=== PATIENT | male | born 1980 | race Caucasian/White ===

== ENCOUNTER 2020-08-21 02:31 | Emergency (ER) | payer BC ==
[~2020-08-21] VITALS: Ht 170.2 cm; Wt 99.8 kg
--- NOTE | 2020-08-21 02:41 | NUR ---
BIBRA C/O ALCOHOL INTOXICATION. PT DENIES SI/HI AT THIS TIME. AAOX3, RESPIRATIONS EVEN AND UNLABORED. NOTED TACHYCARDIA, MD AWARE. NO ACUTE DISTRESS NOTED AT THIS TIME. WILL CONTINUE TO MONITOR.
--- NOTE | 2020-08-21 07:50 | NUR ---
PT ABLE TO AMBULATE WELL WITHOUT ASSISSTANCE. AWARE.
[2020-08-21] MEDS ORDERED: ONDANSETRON HCL/PF - ER 4 MG/2 ML VIAL IM ONE (08:30)
[2020-08-21] MEDS ORDERED: ONDANSETRON HCL/PF 4 MG/2 ML VIAL ONE (08:31)
[2020-08-21] MEDS ORDERED: LORAZEPAM 1 MG TABLET ONE (08:42)
[2020-08-21 08:52] VITALS: BP 124/88
--- NOTE | 2020-08-21 08:52 | NUR ---
IV removed. Catheter intact and site benign. Pressure and 4x4 applied to site. No bleeding noted.Patient discharged to home in stable condition. Written and verbal after care instructions given. Patient verbalizes understanding of instruction.
[2020-08-21] MEDS ORDERED: LORAZEPAM 1 MG TABLET PO ONE (09:00)
== END 2020-08-21 08:52 | disposition home or self-care (01) ==
LOC: ER 02:34
DX: F10.129 Alcohol abuse with intoxication, unspecified (principal); Y90.9 Presence of alcohol in blood, level not specified
CPT/HCPCS: 82962; 96372; 99283; J2405 ×2

== ENCOUNTER 2021-09-04 12:23 | Inpatient (IN) | payer BC ==
[~2021-09-04] VITALS: Ht 177.8 cm; Wt 68.5 kg
[2021-09-04] VITALS (7 sets, daily range): BP systolic 99–119; BP diastolic 59–83
[2021-09-04] MEDS ORDERED: IV PREMIX NS +20MEQ KCL 20 MEQ/L BAG IV ONE (12:27)
--- NOTE | 2021-09-04 12:30 | NUR ---
BIBRA 79 FROM HOME C/O VOMITING STARTED THIS MORNING AND LOW BP 70 SYSTOLIC. PT STATED THAT HE HAS HAD 7 DAYS OF BINGE DRINKING AND HAS BEEN VOMITTING FOR DAYS THIS MORNING IT HAS GOTTEN WORSE AND HE CALLED CONSTRUCTION SALES REPRESENTATIVE HIMSELF. PT IS A&OX4. HAS HISTORY OF PANCREATITIS. BLOOD SUGAR OF 317, MD AWARE. PT ATTCHED TO MONITOR. WARM BLNKAET PROVIDED FOR COMFORT, CHANGED INTO HOSPITAL GOWN. URINAL PROVIDED AT BEDSIDE.
[2021-09-04] MEDS ORDERED: PANTOPRAZOLE 40 MG VIAL ONE (12:52)
[2021-09-04] MEDS ORDERED: ONDANSETRON HCL/PF 4 MG/2 ML VIAL ONE (12:52)
[2021-09-04] MEDS ORDERED: IV NS 0.9% 250 ML IV ONE (12:53)
[2021-09-04] MEDS ORDERED: IOHEXOL-300 100 ML VIAL IV ONE (12:53)
[2021-09-04] MEDS ORDERED: MORPHINE SULFATE INJ 2 MG/ML DISP.SYRIN IV ONE ×2 (13:00→14:00)
[2021-09-04] MEDS ORDERED: IV LR 1000 ML 1,000 ML IV ONE ×2 (13:00→14:30)
[2021-09-04] MEDS ORDERED: ONDANSETRON HCL/PF - ER 4 MG/2 ML VIAL IV ONE (13:00)
[2021-09-04] MEDS ORDERED: PANTOPRAZOLE 80 MG in IV NS 0.9% 500 ML IV ONE (13:00)
[2021-09-04 13:14] LABS: BASOPHILS # (AUTO) 0.1 K/uL (0.0-0.2); BASOPHILS % (AUTO) 0.7 % (0.0-2.0); HEMATOCRIT 47 % (39-51); HEMOGLOBIN 15.2 g/dL (13.5-17.5); LYMPHOCYTES # (AUTO) 2.7 K/uL (0.8-4.8); LYMPHOCYTES % (AUTO) 12.3 % (20.0-44.0); MEAN CORPUSCULAR HGB CONC 32 g/dl (31.0-36.0); MEAN CORPUSCULAR VOLUME 101 fL (80-96); MONOCYTES % (AUTO) 4.6 % (2.0-12.0); NEUTROPHILS # (AUTO) 17.8 K/uL (1.8-8.9); NEUTROPHILS % (AUTO) 82.4 % (43.0-81.0); PLATELET COUNT (AUTO) 301 K/uL (150-450); RED BLOOD CELL COUNT(AUTO) 4.67 MIL/uL (4.5-6.0); WHITE BLOOD COUNT (AUTO) 21.6 K/uL (4.3-11.0)
[2021-09-04] MEDS ORDERED: PANTOPRAZOLE 40 MG VIAL IV ONE (13:30)
[2021-09-04 13:37] LABS: BAND % (MANUAL) 4 % (0.0-5.0); LYMPHOCYTES % (MANUAL) 14 % (16-48); MONOCYTES % (MANUAL) 3 % (0-11.0); NEUTROPHILS % (MANUAL) 79 (42-76)
--- NOTE | 2021-09-04 13:42 | NUR ---
COVID TEST COLLECTD AND SENT
[2021-09-04] MEDS ORDERED: MORPHINE SULFATE INJ 2 MG/ML DISP.SYRIN ONE (13:54)
--- NOTE | 2021-09-04 13:58 | NUR ---
URINE COLLECTED AND SENT
[2021-09-04 14:04] LABS: CALCIUM, SERUM 7.5 mg/dL (8.5-10.1); POTASSIUM 3.3 mmol/L (3.5-5.1)
[2021-09-04 14:09] LABS: ALBUMIN 3.9 g/dL (3.4-5.0); BILIRUBIN,DIRECT 0.2 mg/dL (0.0-0.2); BILIRUBIN,TOTAL 0.4 mg/dL (0.2-1.0)
[2021-09-04 14:24] LABS: ABG BASE EXCESS -29.6 mmol/L; ABG PCO2 9.9 mmHg (35.0-45.0); ABG PO2 135.7 mmHg (75.0-100.0); COHb 0.3 % (0.5-1.5); MetHb 0.5 % (0.0-1.5); O2Hb 97.3 % (94.0-97.0); SITE, ABG Right Radial; VENT MODE, BG room air
[2021-09-04] MEDS ORDERED: CEFTRIAXONE 1 G in IV D5W 50 ML IV ONE (14:30)
[2021-09-04] MEDS ORDERED: SODIUM BICARBONATE 5 MEQ/10 ML DISP.SYRIN IV ONE (14:30)
[2021-09-04] MEDS ORDERED: OXCA150T13 PO (14:34)
[2021-09-04] MEDS ORDERED: ATOR10TA PO (14:34)
[2021-09-04] MEDS ORDERED: EMPA10TA PO (14:34)
[2021-09-04] MEDS ORDERED: METF-881 PO (14:34)
[2021-09-04 14:36] LABS: BILIRUBIN,URINE NEGATIVE (NEGATIVE); COLOR,URINE YELLOW (YELLOW); LEUKOCYTE ESTERASE ,URINE NEGATIVE (NEGATIVE); NITRITE, URINE NEGATIVE (NEGATIVE); PH,URINE 5.5 (5.0-8.0); PROTEIN,URINE 100 mg/dl (NEGATIVE); UGLUCOSE >=1000 mg/dL (NEGATIVE); UROBILINOGEN,URINE 0.2 EU/dL (0.2)
[2021-09-04 14:56] LABS: BACTERIA,URINE 1+ /HPF (None Seen); WBC,URINE 0-2 /HPF (0-3)
[2021-09-04 14:58] LABS: FINE GRANULAR CASTS,URINE Few /LPF (None Seen); MUCUS,URINE Few /LPF (None Seen)
[2021-09-04] MEDS ORDERED: INSULIN REGULAR, HUMAN 100 UNITS in IV NS 0.9% 100 ML IV PRN ×2 (15:00)
[2021-09-04] MEDS ORDERED: IV PREMIX NS +20MEQ KCL 1,000 L IV PRN (15:00)
[2021-09-04] MEDS ORDERED: SODIUM BICARBONATE SYR 50 MEQ/50 ML DISP.SYRIN ONE (15:01)
[2021-09-04] MEDS ORDERED: SODIUM BICARBONATE SYR 100 MEQ in IV D5W 1,000 ML IV ONE (15:30)
[2021-09-04] MEDS ORDERED: IV PREMIX D5 1/2NS + KCL 1,000 ML IV ONE (15:36)
--- NOTE | 2021-09-04 15:46 | NUR ---
NEW IV ESTABLISHED R UPPER ARM 20G
[2021-09-04] MEDS: INSULIN REGULAR, HUMAN 100 UNIT in IV NS 0.9% 99 ML IV PRN ×2 (16:18)
[2021-09-04 16:29] LABS: CALCIUM, SERUM 7.5 mg/dL (8.5-10.1); CREATININE 1.9 mg/dL (0.6-1.3); MAGNESIUM 2.9 mg/dL (1.8-2.4); PHOSPHORUS 7.3 mg/dL (2.5-4.9); POTASSIUM 3.8 mmol/L (3.5-5.1)
[2021-09-04] MEDS ORDERED: ACETAMINOPHEN 325 MG TABLET PO PRN (16:30)
[2021-09-04] MEDS ORDERED: ONDANSETRON HCL/PF 4 MG/2 ML VIAL IVP PRN (16:30)
[2021-09-04] MEDS ORDERED: BISACODYL SUPP (10 MG) 10 MG/SUPP.RECT SUPP.RECT RC ONE (16:30)
--- NOTE | 2021-09-04 16:34 | NUR ---
CO2 IS 2 GLUCOSE 583 IMELDA STRONG NOTIFIED.
--- NOTE | 2021-09-04 16:38 | NUR ---
REPORT GIVEN TO TRACEE FOR MARIELLA
[2021-09-04] MEDS ORDERED: Sodium Bicarbonate 50 MEQ in IV NS 0.9% 1,000 ML IV SCH (17:00)
--- NOTE | 2021-09-04 17:30 | NUR ---
Patient received from ED. Alert and oriented and c/o nausea. Patient is room air with 02 sat of 98%. HOB kept elevated. Admission assessments done by team members. Patient is running insulin drip. Will continue to monitor.
--- NOTE | 2021-09-04 17:32 | NUR ---
PT TRANSPORTED TO ICU IN STABLE CONDITION WITH ACLS PROTOCOLS IN PLACE. PT WAS ABLE TO AMBULATE TO HIS BED DURING TRANSFER WITH ASSISTANCE.
[2021-09-04] MEDS: BLOOD SUGAR DIAGNOSTIC 1 EACH STRIP IN SCH ×7 (17:41→23:06)
[2021-09-04] MEDS: Potassium Chloride 40 MEQ in IV NS 0.9% 1,000 ML IV SCH (17:46)
[2021-09-04] MEDS ORDERED: VANCOMYCIN HCL 0.75 GM in IV D5W 250 ML IV SCH (18:00)
[2021-09-04] MEDS: ATORVASTATIN 10 MG TABLET PO SCH (18:00)
[2021-09-04] MEDS: PIPERACILLIN /TAZOBACTAM 3.375 G in IV D5W 50 ML IV SCH (18:47)
--- NOTE | 2021-09-04 19:15 | NUR ---
EDITOR PRODUCER CLOSING NOTES Patient is alert and oriented. Breathing even and unlabored on room air. On insulin drip running at 12 units/hr. K+ DRIP, NA BICARB drip running well. Patient given dulcolax suppository per md orders. HOB kept elevated. C/o nausea but no vomiting and given Zofran iv push with good effect. 1900 accucheck done and noted with BS of HIGH. Insulin kept at 12 units/hour. Endorsed to next shift.
--- NOTE | 2021-09-04 19:45 | NUR ---
RN NOTE RECEIVED PT SITTING IN BED. AOX4. NO DISTRESS NOTED. DENIES PAIN AT THIS TIME. PT ON INSULIN DRIP AT 12U/HR. WILL DO FSBS Q1H. PT ALSO ON NA BICARB AND KCL RUNNING, ALL INFUSING WELL. NO SIGNS OF INFILTRATION NOTED. WILL CONTINUE TO MONITOR. CALL LIGHT WITHIN REACH.
[2021-09-04] MEDS: Folic acid 1 MG in IV D5W 50 ML IV SCH (20:14)
[2021-09-04 20:17] LABS: CALCIUM, SERUM 7.2 mg/dL (8.5-10.1); CREATININE 1.5 mg/dL (0.6-1.3); MAGNESIUM 2.4 mg/dL (1.8-2.4); PHOSPHORUS 1.5 mg/dL (2.5-4.9); POTASSIUM 3.7 mmol/L (3.5-5.1)
[2021-09-04] MEDS: LORAZEPAM INJ 2 MG/ML VIAL IV PRN (20:31)
[2021-09-04] MEDS: Thiamine 100 MG in IV D5W 50 ML IV SCH (20:54)
[2021-09-05] VITALS (25 sets, daily range): BP systolic 86–134; BP diastolic 54–93
[2021-09-05 00:55] LABS: CALCIUM, SERUM 7.6 mg/dL (8.5-10.1); CREATININE 1.3 mg/dL (0.6-1.3); MAGNESIUM 2.1 mg/dL (1.8-2.4); POTASSIUM 4.1 mmol/L (3.5-5.1)
[2021-09-05] MEDS: BLOOD SUGAR DIAGNOSTIC 1 EACH STRIP IN SCH ×24 (01:03→23:01)
[2021-09-05 01:06] LABS: PHOSPHORUS 0.5 mg/dL (2.5-4.9)
[2021-09-05] MEDS: Potassium Chloride 40 MEQ in IV NS 0.9% 1,000 ML IV SCH (01:42)
[2021-09-05] MEDS: INSULIN REGULAR, HUMAN 100 UNIT in IV NS 0.9% 99 ML IV PRN ×4 (01:44→09:52)
--- NOTE | 2021-09-05 02:13 | NUR ---
RN NOTE NOTIFIED DR MALDONADO REGARDING PHOSPHORUS 0.5. AND FSBS 163 MD ORDERED TO START D5 1/2 NS AT 125ML/HR. STOP BICARB AND CONTINUE WITH ACCUCHECK Q1H AND INSULIN DRIP.
[2021-09-05] MEDS ORDERED: IV D5/0.45 NACL 1,000 ML IV PRN (02:30)
[2021-09-05] MEDS: LORAZEPAM INJ 2 MG/ML VIAL IV PRN (03:51)
--- NOTE | 2021-09-05 04:00 | NUR ---
RN NOTE PT VERBALIZES ANXIOUSNESS, REQUESTED FOR ATIVAN, GIVEN ORDERED. WILL CONTINUE TO MONITOR.
[2021-09-05 04:50] LABS: BASOPHILS % (AUTO) 0.3 % (0.0-2.0); HEMATOCRIT 39 % (39-51); HEMOGLOBIN 13.6 g/dL (13.5-17.5); LYMPHOCYTES # (AUTO) 0.6 K/uL (0.8-4.8); LYMPHOCYTES % (AUTO) 7.3 % (20.0-44.0); MEAN CORPUSCULAR HGB CONC 35 g/dl (31.0-36.0); MEAN CORPUSCULAR VOLUME 95 fL (80-96); MONOCYTES # (AUTO) 0.5 K/uL (0.1-1.30); MONOCYTES % (AUTO) 6.1 % (2.0-12.0); NEUTROPHILS # (AUTO) 6.5 K/uL (1.8-8.9); NEUTROPHILS % (AUTO) 86.3 % (43.0-81.0); PLATELET COUNT (AUTO) 130 K/uL (150-450); RED BLOOD CELL COUNT(AUTO) 4.12 MIL/uL (4.5-6.0); WHITE BLOOD COUNT (AUTO) 7.6 K/uL (4.3-11.0)
[2021-09-05 05:16] LABS: CALCIUM, SERUM 7.5 mg/dL (8.5-10.1); CREATININE 1.2 mg/dL (0.6-1.3); MAGNESIUM 2.2 mg/dL (1.8-2.4); POTASSIUM 3.7 mmol/L (3.5-5.1)
[2021-09-05 05:21] LABS: ALBUMIN 3.3 g/dL (3.4-5.0); BILIRUBIN,TOTAL 0.7 mg/dL (0.2-1.0); CALCIUM, SERUM 7.6 mg/dL (8.5-10.1); CREATININE 1.1 mg/dL (0.6-1.3); MAGNESIUM 2.3 mg/dL (1.8-2.4); POTASSIUM 3.7 mmol/L (3.5-5.1); TOTAL PROTEIN, SERUM 6.1 g/dL (6.4-8.2)
[2021-09-05 05:25] LABS: THYROID STIMULATING HORMONE 1.93 uIU/mL (0.358-3.74)
[2021-09-05 05:44] LABS: PHOSPHORUS 0.5 mg/dL (2.5-4.9); PHOSPHORUS 0.6 mg/dL (2.5-4.9)
[2021-09-05] MEDS: PIPERACILLIN /TAZOBACTAM 3.375 G in IV D5W 50 ML IV SCH ×6 (05:55→23:55)
--- NOTE | 2021-09-05 07:15 | NUR ---
RN NOTE PT SLEEPING, AROUSES EASILY. NOT IN ANY DISTRESS. CONTINUE ON INSULIN DRIP AT 3.1U/HR. LATEST FSBS 155. REMAIN NPO. CONTINUES ON FLUIDS OF KCL 40MEQ AT 125ML/HR AND D51/2 NS AT 12ML/HR. ALL INFUSING WELL. NO S/SX OF INFILTRATION NOTED. PT HAD 1 LARGE BM. ABLE TO MAKE NEEDS KNOWN. ENDORSED TO NEXT SHIFT NURSE FOR MARIELLA.
--- NOTE | 2021-09-05 07:39 | NUR ---
RN NOTE PHOSPHORUS 0.5, RECEIVED AN ORDER FROM DR MALDONADO TO GIVE KPHOS 15MMOL. CHARGE NURSE MADE AWARE.
--- NOTE | 2021-09-05 08:00 | NUR ---
RN NOTES RECEIVED PATIENT IN THE BED RESTING. ROOM AIR, NO ACUTRE RESPIRATORY DISTRESS, VSS, PATIENT ON INSULIN DRIP, BS-126MG/DL. FOLLOWING ON INSULIN FORMULA, AND PROTOCOL. PATIENT USING URINAL. IV ACCESS ON JIGNESH, RW, LW, AND LAC. CALL LIGHT WITHIN TO REACH. WILL FOLLOW UP.
[2021-09-05] MEDS: POTASSIUM PHOSPHATE MM 7.5 MMOL in IV NS 0.9% 100 ML IV SCH ×2 (08:22→11:24)
[2021-09-05] MEDS ORDERED: Sodium Phosphate 30 MMOL in IV NS 0.9% 250 ML IV SCH (09:00)
[2021-09-05] MEDS ORDERED: PANTOPRAZOLE 40 MG VIAL IV SCH (09:00)
[2021-09-05] MEDS: SUCRALFATE 1 G TABLET PO SCH (09:01)
[2021-09-05] MEDS: MULTIPLE VIT (LYCOPENE/FA/MV,CA,IRON,MIN/LUT)1 TAB PO SCH (09:05)
[2021-09-05 09:37] LABS: CALCIUM, SERUM 7.8 mg/dL (8.5-10.1); CREATININE 1.1 mg/dL (0.6-1.3); MAGNESIUM 2.1 mg/dL (1.8-2.4); POTASSIUM 3.6 mmol/L (3.5-5.1)
[2021-09-05 10:16] LABS: PHOSPHORUS 0.6 mg/dL (2.5-4.9)
[2021-09-05] MEDS: Potassium Chloride 40 MEQ in IV D5/0.45 NACL 1,000 ML IV SCH ×2 (10:39→18:18)
[2021-09-05] MEDS ORDERED: DEXTROSE 50%-WATER 50 ML DISP.SYRIN IVP ONE (11:00)
--- NOTE | 2021-09-05 11:00 | NUR ---
RN NOTES PATIENT GET INSERTED MIDLINE ON KRISTIAN.
[2021-09-05 12:33] LABS: CALCIUM, SERUM 7.5 mg/dL (8.5-10.1); MAGNESIUM 2.3 mg/dL (1.8-2.4); PHOSPHORUS 1.6 mg/dL (2.5-4.9); POTASSIUM 3.6 mmol/L (3.5-5.1)
--- NOTE | 2021-09-05 15:20 | NUR ---
rn notes UA specimen collected clean catch, called lab to pick pack worker. patient awake, refused pain, no acute respiratory distress, vss. patient npo. call light within to reach. will follow up.
[2021-09-05 16:50] LABS: CALCIUM, SERUM 7.9 mg/dL (8.5-10.1); CREATININE 1.1 mg/dL (0.6-1.3); MAGNESIUM 2.4 mg/dL (1.8-2.4); PHOSPHORUS 1.9 mg/dL (2.5-4.9); POTASSIUM 3.5 mmol/L (3.5-5.1)
[2021-09-05] MEDS: Folic acid 1 MG in IV D5W 50 ML IV SCH (17:24)
[2021-09-05] MEDS: Thiamine 100 MG in IV D5W 50 ML IV SCH (17:24)
[2021-09-05] MEDS: ATORVASTATIN 10 MG TABLET PO SCH (18:18)
--- NOTE | 2021-09-05 18:30 | NUR ---
rn notes pm care done, due medication administered, patient using urinal. continued insulin drip 2.1u, and d51/2 ns with kcl @40meq @125ml/hr. patient npo except Meds, and ice chips, patient able to self care. endorsed oncoming nurse follow juliane.
--- NOTE | 2021-09-05 20:00 | NUR ---
ICU NOTES Received patient A/OX3.VSS.SR normotensive on Insulin gtt infusing at 2.04 units/hr via KRISTIAN ML and IVF.On RA saturation 100%.Denies pain or any discomfort.NPO except meds and ice chips. Independent voiding per urinal.Will monitor blood sugar Q 1hr till further orders.Safety measures implemented .Call light at bedside.
[2021-09-05 23:35] LABS: CALCIUM, SERUM 7.8 mg/dL (8.5-10.1); MAGNESIUM 2.1 mg/dL (1.8-2.4); PHOSPHORUS 1.3 mg/dL (2.5-4.9); POTASSIUM 3.3 mmol/L (3.5-5.1)
[2021-09-06] VITALS (14 sets, daily range): BP systolic 92–138; BP diastolic 56–87
--- NOTE | 2021-09-06 | NUR ---
ICU NOTES Patient FSBS 131. and ANION GAP 20 Called to with orders received. If BS <150-200 increased IVF 2 ml/hr to maintain BS 150-200. If BS 150-200 keep IVF as it is.Do not adjust Insulin gtt., If BS >250 adjust rate of insulin gtt using the Formula BS x2 divided by 100.
[2021-09-06] MEDS: BLOOD SUGAR DIAGNOSTIC 1 EACH STRIP IN SCH ×4 (00:23→03:25)
[2021-09-06] MEDS ORDERED: INSULIN REGULAR, HUMAN 100 UNIT in IV NS 0.9% 99 ML IV PRN ×2 (00:30)
[2021-09-06 00:40] LABS: CALCIUM, SERUM 7.6 mg/dL (8.5-10.1); CREATININE 0.9 mg/dL (0.6-1.3); POTASSIUM 3.2 mmol/L (3.5-5.1)
[2021-09-06] MEDS ORDERED: IV NS 0.9% 250 ML IV PRN (01:00)
--- NOTE | 2021-09-06 01:45 | NUR ---
ICU NOTES 013 Patient BS 94 IVF increased to 129 ml/hr. notified of Anion Gap 11.Read back telephone orders received and carried out.Adjust Insulin gtt to 1.88ml/hr per protocol. Let the patient [facility] diet and recheck BS IN 15-30 min after patient eats and cover with Regular Insulin Aggressive sliding scale together with Insulin gtt.Do another BMP at 0300.AT 0145 Diet served ate with good appetite. Addendum: 09/06/21 at 0500 by ALFONZO NGUYEN RN Correction: Regular Insulin moderate sliding scale given instead of Aggressive SS.
[2021-09-06] MEDS: Potassium Chloride 40 MEQ in IV D5/0.45 NACL 1,000 ML IV SCH (01:52)
[2021-09-06] MEDS ORDERED: BLOOD SUGAR DIAGNOSTIC 1 EACH STRIP IN SCH ×2 (02:00→03:00)
[2021-09-06] MEDS ORDERED: DEXTROSE 50%-WATER 50 ML DISP.SYRIN IV PRN ×2 (02:30→07:30)
[2021-09-06] MEDS: INSULIN REGULAR, HUMAN 100 UNIT/ML 3 ML VIAL SQ PRN ×3 (02:51→07:39)
[2021-09-06 03:40] LABS: ALBUMIN 2.9 g/dL (3.4-5.0); BILIRUBIN,DIRECT 0.3 mg/dL (0.0-0.2); CALCIUM, SERUM 7.3 mg/dL (8.5-10.1); MAGNESIUM 1.9 mg/dL (1.8-2.4); PHOSPHORUS 1.5 mg/dL (2.5-4.9); POTASSIUM 3.1 mmol/L (3.5-5.1); TOTAL PROTEIN, SERUM 5.5 g/dL (6.4-8.2)
--- NOTE | 2021-09-06 03:53 | NUR ---
ICU NOTES called and inquire about patient status and latest ANION GAP for 0300 which is 11.Orders received and carried out.Insulin gtt and IVF dc'd.BS 232 covered with 6 units Regular insulin moderated SS.Changed Accu check to AC and HS with moderate SS.
[2021-09-06 04:01] LABS: BASOPHILS % (AUTO) 0.6 % (0.0-2.0); EOSINOPHILS % (AUTO) 0.9 % (0.0-6.0); HEMATOCRIT 38 % (39-51); HEMOGLOBIN 12.9 g/dL (13.5-17.5); LYMPHOCYTES # (AUTO) 1.2 K/uL (0.8-4.8); LYMPHOCYTES % (AUTO) 21.2 % (20.0-44.0); MEAN CORPUSCULAR HGB CONC 34 g/dl (31.0-36.0); MEAN CORPUSCULAR VOLUME 95 fL (80-96); MONOCYTES # (AUTO) 0.2 K/uL (0.1-1.30); MONOCYTES % (AUTO) 3.5 % (2.0-12.0); NEUTROPHILS # (AUTO) 4.3 K/uL (1.8-8.9); NEUTROPHILS % (AUTO) 73.8 % (43.0-81.0); RED BLOOD CELL COUNT(AUTO) 3.96 MIL/uL (4.5-6.0); WHITE BLOOD COUNT (AUTO) 5.9 K/uL (4.3-11.0)
[2021-09-06] MEDS: PIPERACILLIN /TAZOBACTAM 3.375 G in IV D5W 50 ML IV SCH ×2 (05:40→11:05)
--- NOTE | 2021-09-06 06:54 | NUR ---
ICU NOTES Patient awake and oriented x4.NO acute distress noted.Vital signs remains stable.SR No signs of hypo/hyperglycemia noted.IV NS at TKO infusing to KRISTIAN ML.Patient refused AM care refused he said he will do it later.Endorsed to Day shift for continuity of care..
[2021-09-06] MEDS: BLOOD SUGAR DIAGNOSTIC 1 EACH STRIP VI SCH ×4 (07:25→21:24)
[2021-09-06] MEDS: PANTOPRAZOLE 40 MG TABLET.DR PO SCH (07:27)
--- NOTE | 2021-09-06 07:30 | NUR ---
RN OPENING NOTE PT OBSERVED IN BED WITH HOB HIGH FOWLERS. PT IS ON RA TOLERATING WELL WITH NO SIGNS OF LABORED BREATHING OR DISTRESS SAT 98%. PT IS A/OX4 AND SR; USING URINAL; SKIN IS INTACT. PT IS ON CCHO DIET. IV ACCESS R FA 20G; RW 20G; LW 20G; L AC 20G; L UA MIDLINE. BED IS LOCKED IN LOWEST POSITION X2 BED RAILS UP AND ALL HOSPITAL SAFETY PROTOCOLS ARE IN PLACE. WILL CONTINUE TO MONITOR THIS SHIFT.
--- NOTE | 2021-09-06 07:40 | NUR ---
RN NOTE PT BS 63. PER SLIDING SCALE, NO COVERAGE NEEDED AT THIS TIME.
[2021-09-06] MEDS: MULTIPLE VIT (LYCOPENE/FA/MV,CA,IRON,MIN/LUT)1 TAB PO SCH (08:36)
[2021-09-06] MEDS: SUCRALFATE 1 G TABLET PO SCH (08:36)
[2021-09-06] MEDS: THIAMINE HCL 100 MG TABLET PO SCH (08:37)
[2021-09-06] MEDS: FOLIC ACID 1 MG TABLET PO SCH (08:37)
[2021-09-06] MEDS ORDERED: K PHOS NEUTRAL 250 MG TABLET PO ONE (10:00)
[2021-09-06] MEDS ORDERED: POTASSIUM CHLORIDE 20 MEQ TAB.PRT.SR PO SCH (10:00)
[2021-09-06] MEDS: *INSULIN REGULAR(HUMULIN R)HUM 100 UNIT/ML VIAL SQ PRN ×3 (11:26→21:24)
--- NOTE | 2021-09-06 12:04 | NUR ---
RN NOTE: TRANSFER TO CALLED AND GAVE REPORT TO IMELDA GORE. WILL BE TRANSFERRING PT TO #[id number]. PT STABLE AT THIS TIME.
--- NOTE | 2021-09-06 12:25 | NUR ---
RN NOTE: TRANSFERRED PT STABLE AT THIS TIME AND TRANSFERRED TO #[id number] VIA WHEELCHAIR WITH ALL BELONGINGS AND MEDICATIONS. PT RECEIVED BY IMELDA GORE.
--- NOTE | 2021-09-06 12:50 | NUR ---
RN NOTE PATIENT WAS TRANSFERRED TO UNIT VIA WHEELCHAIR, NO DISTRESS. A/O X4. NO S/S OF PAIN NOTED AT THIS TIME. ON ROOM AIR, NO DISTRESS OR SHORTNESS OF BREATH NOTED. IV ACCESS RFA #20G, R WRIST #20G, L WRIST #18G AND LAC #20G, INTACT, PATENT AND FLUSHING WELL. PATIENT WITH EXTERNAL HOPS FARMWORKER WITH CURRENT READING OF S.R., NO CARDIAC DISTRESS NOTED. FALL AND SAFETY MEASURES IN PLACE, BED IN LOW LOCK POSITION, CALL LIGHT AND TABLE WITHIN EASY REACH, SIDE RAILS UP X2. PATIENT ORIENTED TO ROOM SET UP AND SHOWED PATIENT HOW TO USE CALL LIGHT. WILL CONTINUE TO MONITOR.
[2021-09-06 16:05] LABS: PLATELET COUNT (AUTO) 94 K/uL (150-450)
[2021-09-06] MEDS: ATORVASTATIN 10 MG TABLET PO SCH (17:54)
--- NOTE | 2021-09-06 18:43 | NUR ---
RN CLOSING NOTE PATIENT AWAKE IN BED RESTING, A/O X4. NO S/S OF PAIN NOTED AT THIS TIME. ON ROOM AIR, NO DISTRESS OR SHORTNESS OF BREATH NOTED. IV ACCESS RFA #20G, R WRIST #20G, L WRIST #18G AND LAC #20G, INTACT, PATENT AND FLUSHING WELL. PATIENT WITH EXTERNAL WATER/WASTEWATER PROJECT MANAGER WITH CURRENT READING OF S.R. AND HR OF 87, NO CARDIAC DISTRESS NOTED. FALL AND SAFETY MEASURES IN PLACE, BED IN LOW LOCK POSITION, CALL LIGHT AND TABLE WITHIN EASY REACH, SIDE RAILS UP X2. WILL ENDORSE TO ROLLER SKATER NURSE.
--- NOTE | 2021-09-06 19:10 | NUR ---
COLLECTION SUPPORT SPECIALIST OPENING NOTES: RECEIVED PATIENT IN BED, AWAKE, A/O X4. NO S/S OF DISTRESS NOTED. NO COMPLAIN OF PAIN. CALL LIGHT WITHIN REACH. BED IN LOWEST AND LOCKED POSITION. ON TELE MONITOR WITH SINUS 87.
[2021-09-07] VITALS: BP 106/74
[2021-09-07 04:00] VITALS: BP 112/73
[2021-09-07 06:41] LABS: BASOPHILS % (AUTO) 0.9 % (0.0-2.0); EOSINOPHILS % (AUTO) 1.7 % (0.0-6.0); HEMATOCRIT 40 % (39-51); HEMOGLOBIN 13.3 g/dL (13.5-17.5); LYMPHOCYTES # (AUTO) 1.3 K/uL (0.8-4.8); MEAN CORPUSCULAR HGB CONC 34 g/dl (31.0-36.0); MEAN CORPUSCULAR VOLUME 97 fL (80-96); MONOCYTES # (AUTO) 0.2 K/uL (0.1-1.30); MONOCYTES % (AUTO) 4.5 % (2.0-12.0); NEUTROPHILS # (AUTO) 2.4 K/uL (1.8-8.9); NEUTROPHILS % (AUTO) 60.9 % (43.0-81.0); PLATELET COUNT (AUTO) 81 K/uL (150-450); RED BLOOD CELL COUNT(AUTO) 4.06 MIL/uL (4.5-6.0); WHITE BLOOD COUNT (AUTO) 3.9 K/uL (4.3-11.0)
[2021-09-07] MEDS: INSULIN REGULAR, HUMAN 100 UNIT/ML 3 ML VIAL SQ PRN ×2 (06:44→11:45)
[2021-09-07] MEDS: BLOOD SUGAR DIAGNOSTIC 1 EACH STRIP VI SCH ×2 (06:46→11:46)
--- NOTE | 2021-09-07 07:35 | NUR ---
BIOMEDICAL EQUIPMENT TECH OPENING NOTES RECEIVED PATIENT IN BED, AWAKE. A/O X4. NO COMPLAINT OF PAIN AT THIS TIME. ON RA, NO ACUTE DISTRESS, UNLABORED BREATHING. TELE MONITOR SHOWS SR 82 BPM AT THIS TIME. SAFETY PRECAUTIONS IN PLACE: CALL LIGHT WITHIN REACH, BED IN LOWEST AND LOCKED POSITION, SIDE RAILS UP X2. WILL CONTINUE PLAN OF CARE
[2021-09-07 08:00] VITALS: BP 125/75
[2021-09-07] MEDS: SUCRALFATE 1 G TABLET PO SCH (08:24)
[2021-09-07] MEDS: MULTIPLE VIT (LYCOPENE/FA/MV,CA,IRON,MIN/LUT)1 TAB PO SCH (08:24)
[2021-09-07] MEDS: THIAMINE HCL 100 MG TABLET PO SCH (08:24)
[2021-09-07] MEDS: PANTOPRAZOLE 40 MG TABLET.DR PO SCH (08:24)
[2021-09-07] MEDS: FOLIC ACID 1 MG TABLET PO SCH (08:24)
[2021-09-07 08:30] LABS: CALCIUM, SERUM 8.6 mg/dL (8.5-10.1); CREATININE 0.6 mg/dL (0.6-1.3); MAGNESIUM 2.2 mg/dL (1.8-2.4); PHOSPHORUS 2.1 mg/dL (2.5-4.9); POTASSIUM 3.9 mmol/L (3.5-5.1)
[2021-09-07 12:53] LABS: ALBUMIN 3.2 g/dL (3.4-5.0); BILIRUBIN,DIRECT 0.3 mg/dL (0.0-0.2); BILIRUBIN,TOTAL 1.3 mg/dL (0.2-1.0)
[2021-09-07] MEDS ORDERED: K PHOS NEUTRAL 250 MG TABLET PO ONE (15:30)
--- NOTE | 2021-09-07 16:55 | NUR ---
DATA INPUT CLERK NOTES PATIENT MEDICALLY STABLE FOR DISCHARGE. DISCHARGE INSTRUCTIONS AND EXIT CARE PACKET PROVIDED. PATIENT VERBALIZED UNDERSTANDING OF TEACHING. ALL BELONGINGS ACCOUNTED FOR AND DOCUMENTS SIGNED. ALL LINES REMOVED AND ID BAND REMOVED. PATIENT LEFT IN PRIVATE CARE ACCOMPANIED BY FRIEND.
== END 2021-09-07 16:50 | disposition home or self-care (01) | DRG 871 ==
LOC: ER 12:26 → ICU 16:00 → TELE 09-06 12:47
PROVIDERS: ADMIT Registered Nurse; ATTEND Nurse Practitioner Family
PROC: 05H633Z Insertion of Infusion Device into Left Subclavian Vein, Percutaneous Approach (ICD-10-PCS; principal; 2021-09-05)
PROC: B547ZZA Ultrasonography of Left Subclavian Vein, Guidance (ICD-10-PCS; 2021-09-05)
DX: A41.9 Sepsis, unspecified organism (principal); E11.10 Type 2 diabetes mellitus with ketoacidosis without coma; R65.21 Severe sepsis with septic shock; N17.0 Acute kidney failure with tubular necrosis; K86.1 Other chronic pancreatitis; N39.0 Urinary tract infection, site not specified; E44.1 Mild protein-calorie malnutrition; E83.39 Other disorders of phosphorus metabolism; E88.09 Other disorders of plasma-protein metabolism, not elsewhere classified; K59.00 Constipation, unspecified; Z79.84 Long term (current) use of oral hypoglycemic drugs; K20.90 Esophagitis, unspecified without bleeding; K76.0 Fatty (change of) liver, not elsewhere classified; Z68.21 Body mass index [BMI] 21.0-21.9, adult; Z20.822 Contact with and (suspected) exposure to COVID-19; F10.129 Alcohol abuse with intoxication, unspecified; Y90.5 Blood alcohol level of 100-119 mg/100 ml
CPT/HCPCS: 36415; 36600; 71045-TC; 80048-TC; 80053-TC; 80076-TC; 80202-TC; 81001; 82962-TC; 83605-TC; 83690-TC; 83735-TC; 84100-TC; 84443-TC; 84484-TC; 85025-TC; 86850-TC; 87040-TC; 87081-TC; 87086-TC; A9563; C9113; C9803; G0378; G0480; J0696; J1815; J2060; J2270; J2405; J2543; J3370; J3411; J3480; J3490; J7030; J7050; J7060; J7070; J7120; Q9967

== ENCOUNTER 2022-06-28 07:30 | Emergency (ER) | payer BC ==
[~2022-06-28] VITALS: Ht 177.8 cm; Wt 68.0 kg
[~2022-06-28 07:30] MED LIST: ATOR10TA PO; EMPA10TA PO; METF-881 PO; OXCA150T13 PO
--- NOTE | 2022-06-28 07:49 | NUR ---
RECEived pt 41 yrs male came by pramidrajinder from home c/o epegastric pain hx ETOH
--- NOTE | 2022-06-28 08:00 | NUR ---
SEEN BY DR. GAITAN
[2022-06-28 08:01] LABS: BASOPHILS % (AUTO) 0.4 % (0.0-2.0); EOSINOPHILS % (AUTO) 0.5 % (0.0-6.0); HEMATOCRIT 46 % (39-51); HEMOGLOBIN 15.4 g/dL (13.5-17.5); LYMPHOCYTES # (AUTO) 1.6 K/uL (0.8-4.8); LYMPHOCYTES % (AUTO) 23.9 % (20.0-44.0); MEAN CORPUSCULAR HGB CONC 33 g/dl (31.0-36.0); MEAN CORPUSCULAR VOLUME 87 fL (80-96); MONOCYTES # (AUTO) 0.2 K/uL (0.1-1.30); MONOCYTES % (AUTO) 3.3 % (2.0-12.0); NEUTROPHILS # (AUTO) 4.9 K/uL (1.8-8.9); NEUTROPHILS % (AUTO) 71.9 % (43.0-81.0); PLATELET COUNT (AUTO) 75 K/uL (150-450); RED BLOOD CELL COUNT(AUTO) 5.31 MIL/uL (4.5-6.0); WHITE BLOOD COUNT (AUTO) 6.8 K/uL (4.3-11.0)
--- NOTE | 2022-06-28 08:05 | NUR ---
INSERTED ANGO CATHETER G 20 ON RT FOR ARM PATENT WILL
--- NOTE | 2022-06-28 08:10 | NUR ---
BLOOD DROW AND SENT TO LAB
[2022-06-28] MEDS ORDERED: MAG HYDROX/AL HYDROX/SIMETH 30 ML UDC ONE (08:11)
[2022-06-28] MEDS ORDERED: ONDANSETRON HCL/PF 4 MG/2 ML VIAL ONE (08:11)
[2022-06-28] MEDS ORDERED: LIDOCAINE VISCOUS 2% UD 15 ML UDC ONE (08:12)
[2022-06-28] MEDS ORDERED: FAMOTIDINE/PF INJ 20 MG/2 ML VIAL IV ONE ×2 (08:12→08:30)
[2022-06-28 08:13] LABS: BILIRUBIN,DIRECT 0.4 mg/dL (0.0-0.2); BILIRUBIN,TOTAL 1.2 mg/dL (0.2-1.0); CALCIUM, SERUM 8.7 mg/dL (8.5-10.1); CREATININE 0.9 mg/dL (0.6-1.3); POTASSIUM 3.5 mmol/L (3.5-5.1); TOTAL PROTEIN, SERUM 7.4 g/dL (6.4-8.2)
[2022-06-28] MEDS ORDERED: LORAZEPAM INJ 2 MG/ML VIAL IV ONE (08:30)
[2022-06-28] MEDS ORDERED: MAG HYDROX/AL HYDROX/SIMETH 30 ML UDC PO ONE (08:30)
[2022-06-28] MEDS ORDERED: IV NS 0.9% 1,000 ML BAG IV ONE (08:30)
[2022-06-28] MEDS ORDERED: LIDOCAINE VISCOUS 2% UD 15 ML UDC MM ONE (08:30)
[2022-06-28] MEDS ORDERED: ONDANSETRON HCL/PF 4 MG/2 ML VIAL IVP ONE (08:30)
[2022-06-28] MEDS ORDERED: LORAZEPAM INJ 2 MG/ML VIAL ONE (08:32)
[2022-06-28] MEDS ORDERED: ONDA4TAB5 PO (08:52)
[2022-06-28] MEDS ORDERED: FAMO-131 PO (08:52)
--- NOTE | 2022-06-28 09:02 | NUR ---
UA SENT SENT TO LAB
--- NOTE | 2022-06-28 09:30 | NUR ---
PT felling improving and responded to tx
[2022-06-28] MEDS ORDERED: CHLO25CA22 PO (09:31)
--- NOTE | 2022-06-28 09:55 | NUR ---
IV removed. Catheter intact and site benign. Pressure and 4x4 applied to site. No bleeding noted.
--- NOTE | 2022-06-28 09:56 | NUR ---
Patient discharged to home in stable condition. Written and verbal after care instructions given. Patient verbalizes understanding of instruction.
[2022-06-28 09:58] VITALS: BP 114/73
[2022-06-29 03:18] LABS: BASOPHILS % (MANUAL) 0 % (0.0-2.0); EOSINOPHILS % (MANUAL) 0 % (0-4); LYMPHOCYTES % (MANUAL) 24 % (16-48); MONOCYTES % (MANUAL) 3 % (0-11.0); NEUTROPHILS % (MANUAL) 73 (42-76)
== END 2022-06-28 10:30 | disposition home or self-care (01) ==
LOC: ER 08:11
DX: K29.20 Alcoholic gastritis without bleeding (principal); F10.239 Alcohol dependence with withdrawal, unspecified; F10.229 Alcohol dependence with intoxication, unspecified; R10.13 Epigastric pain; K70.9 Alcoholic liver disease, unspecified; E78.5 Hyperlipidemia, unspecified; E11.9 Type 2 diabetes mellitus without complications; Z79.899 Other long term (current) drug therapy; Y90.6 Blood alcohol level of 120-199 mg/100 ml
CPT/HCPCS: 99285; 96374; 96361; 96375; 76705; 85025; 80048; 83690; 80076; 85007; 36415; 80320; J2060; J3490; J2405; J7030; G0480

== ENCOUNTER 2022-10-25 13:10 | Inpatient (IN) | payer BC ==
[~2022-10-25] VITALS: Ht 167.6 cm; Wt 75.7 kg
[~2022-10-25 13:10] MED LIST changes: +CHLO25CA22 PO; +FAMO-131 PO; +ONDA4TAB5 PO
[2022-10-25] MEDS ORDERED: ETOMIDATE 2 MG/ML VIAL IV ONE ×2 (13:12→13:30)
[2022-10-25] MEDS ORDERED: SUCCINYLCHOLINE CHLORIDE 20 MG/ML VIAL IV ONE ×2 (13:12→13:30)
--- NOTE | 2022-10-25 13:12 | NUR ---
IV ESTABLISHED L AC 20G. LABS DRAWN AND SENT.
[2022-10-25] MEDS ORDERED: INSU300I SQ (13:28)
[2022-10-25] MEDS ORDERED: PROPOFOL 100 ML ONE ×2 (13:28→16:27)
[2022-10-25] MEDS ORDERED: INSU100V SQ (13:28)
[2022-10-25] MEDS ORDERED: IV NS 0.9% 1,000 ML BAG IV ONE ×2 (13:30→15:00)
[2022-10-25] MEDS ORDERED: PROPOFOL 100 ML IV PRN ×2 (13:30→16:00)
--- NOTE | 2022-10-25 13:46 | NUR ---
PT ARRIVED ALTERED AND UNRESPONSIVE CONVULSIONS NOTED. O2SAT 86 PLACED ON NRB AT 15L. FURTHER EVALUATION PROVED THAT PT COULD NOT PROTECT HIS OWN AIRWAY, SO MD MADE DECISION TO INTUBATE. 20 OF ETOMIDATE AND 100 OF SUCCUNYLCHOLINE WAS DRAWN UP. PT WAS THEN PLACED ON BAG MASK VENT AT 15L. ONCE ALL INSTRUMENTS RT AND RN'S WERE PRESENT PTS VITALS WERE HR 101, RR21, O2SAT 87 W/ NRB 79/49. AT 1316 20MG OF ETOMIDATE WAS PUSHED AND FLUSHED, THEN 1317 100MG OF SUCC WAS PUSHED AND FLUSHED. PT WAS THEN INTUBATED WITHOUT COMPLICATIONS 24@THE LIP AND O2 SAT WAS MAINTAINED. PT WAS THEN CONNECTED TO THE VENTILATOR AC 201GQR3, 500 Tv, RR14, PEEP 5. POST VITALS HR 106, RR18, 100% O2SAT, BP 99/78. FRIED CATHETER WAS INSERTED AND URINE SAMPLE WAS COLLECTED DARK STRAW COLORED URINE NG TUBE WAS PLACE 2 RN AUSCULTATED AB GURGLE AND GASTRIC CONTENT ASPRATED X RAY PENDING Addendum: 10/25/22 at 1400 by TBANZON 1318 24 AT THE LIP 7.5
--- NOTE | 2022-10-25 14:00 | NUR ---
PT STARTED ON PROPOFOL AT 5MCG/KG/MIN
[2022-10-25 14:01] LABS: BASOPHILS # (AUTO) 0.1 K/uL (0.0-0.2); BASOPHILS % (AUTO) 0.9 % (0.0-2.0); EOSINOPHILS % (AUTO) 0.1 % (0.0-6.0); HEMATOCRIT 51 % (39-51); HEMOGLOBIN 17.1 g/dL (13.5-17.5); LYMPHOCYTES # (AUTO) 1.6 K/uL (0.8-4.8); LYMPHOCYTES % (AUTO) 18.9 % (20.0-44.0); MEAN CORPUSCULAR HGB CONC 34 g/dl (31.0-36.0); MEAN CORPUSCULAR VOLUME 86 fL (80-96); MONOCYTES # (AUTO) 0.4 K/uL (0.1-1.30); MONOCYTES % (AUTO) 4.8 % (2.0-12.0); NEUTROPHILS # (AUTO) 6.2 K/uL (1.8-8.9); NEUTROPHILS % (AUTO) 75.3 % (43.0-81.0); PLATELET COUNT (AUTO) 132 K/uL (150-450); RED BLOOD CELL COUNT(AUTO) 5.89 MIL/uL (4.5-6.0); WHITE BLOOD COUNT (AUTO) 8.2 K/uL (4.3-11.0)
--- NOTE | 2022-10-25 14:01 | NUR ---
X RAY AT BEDSIDE.
[2022-10-25 14:07] LABS: BILIRUBIN,URINE NEGATIVE (NEGATIVE); COLOR,URINE YELLOW (YELLOW); LEUKOCYTE ESTERASE ,URINE NEGATIVE (NEGATIVE); NITRITE, URINE NEGATIVE (NEGATIVE); PH,URINE 6.5 (5.0-8.0); PROTEIN,URINE 1+ mg/dl (NEGATIVE); UGLUCOSE TRACE mg/dL (NEGATIVE)
--- NOTE | 2022-10-25 14:10 | NUR ---
URINE SAMPLE COLLECTED
[2022-10-25 14:12] LABS: SERUM AMMONIA 4 umol/L (11-32)
[2022-10-25 14:17] LABS: ALANINE AMINOTRANSFERASE 227 U/L (12-78); ALBUMIN 3.8 g/dL (3.4-5.0); ALCOHOL, BLOOD 210 mg/dL (0-0); ALKALINE PHOSPHATASE 169 U/L (46-116); ASPARTATE AMINOTRANSFERASE 255 U/L (15-37); BILIRUBIN,DIRECT 0.3 mg/dL (0.0-0.2); BILIRUBIN,TOTAL 0.7 mg/dL (0.2-1.0); CALCIUM, SERUM 8.1 mg/dL (8.5-10.1); CARBON DIOXIDE 32 mmol/L (21-32); CHLORIDE 102 mmol/L (98-107); CREATININE 0.9 mg/dL (0.6-1.3); GLUCOSE 99 mg/dL (74-106); POTASSIUM 3.9 mmol/L (3.5-5.1); SODIUM SERUM 145 mmol/L (136-145); TOTAL PROTEIN, SERUM 7.4 g/dL (6.4-8.2); UREA NITROGEN, BLOOD 14 mg/dL (7-18)
[2022-10-25] MEDS ORDERED: GABA-532 PO (14:19)
[2022-10-25] MEDS ORDERED: SUCR1TAB PO (14:19)
[2022-10-25] MEDS ORDERED: AMYL1CAP58 PO (14:19)
[2022-10-25] MEDS ORDERED: OXCA150T13 PO (14:19)
[2022-10-25] MEDS ORDERED: FAMO20TA8 PO (14:19)
[2022-10-25] MEDS ORDERED: OMEP20CA15 PO (14:19)
[2022-10-25] MEDS ORDERED: ONDA-97 PO (14:19)
[2022-10-25 14:24] LABS: THYROID STIMULATING HORMONE 1.318 uIU/mL (0.358-3.74)
[2022-10-25] MEDS ORDERED: LORAZEPAM INJ 2 MG/ML VIAL ONE (14:28)
[2022-10-25] MEDS ORDERED: LORAZEPAM INJ 2 MG/ML VIAL IV ONE (14:30)
--- NOTE | 2022-10-25 14:30 | NUR ---
SEIZURE ACTIVITY SUSSPECTED HR JUMPED TO 150 AND MUSCLE ASSESSED TONIC. PT POSITION ALSO NOTED TO BE TENSE AND ABNORMAL. MD NOTIFED AND ORDER RECEIVED FOR 2MG OF ATIVAN. SEIZURE PRECAUTIONS INITATED.
--- NOTE | 2022-10-25 14:31 | NUR ---
FRIEND STATES HE HAS BEEN DRINKING SINCE THE October. [phone] BRUCE.
[2022-10-25] MEDS: LEVETIRACETAM (500MG) 1,000 MG in IV NS 0.9% 100 ML IV SCH (15:00)
[2022-10-25] MEDS ORDERED: VANCOMYCIN 1 GM in IV D5W 250 ML IV ONE (15:00)
[2022-10-25] MEDS ORDERED: CEFEPIME 2 GM in IV D5W 100 ML IV ONE (15:00)
--- NOTE | 2022-10-25 15:01 | NUR ---
covid test collected and sent to lab
[2022-10-25 15:09] LABS: ABG BASE EXCESS -1.6 mmol/L; ABG PCO2 34.9 mmHg (35.0-45.0); ABG PH 7.419 (7.350-7.450); ABG PO2 124.5 mmHg (75.0-100.0); COHb 0.2 % (0.5-1.5); MetHb 0.6 % (0.0-1.5); O2Hb 97.5 % (94.0-97.0); PEEP,BG 5 cm H2O; SITE, ABG Left Radial; VT, ABG 550 mL
[2022-10-25 15:15] LABS: BACTERIA,URINE None seen /HPF (None Seen); MUCUS,URINE Moderate /LPF (None Seen); RBC,URINE 0-2 /HPF (0-2); SQUAMOUS EPITHELIAL CELL,UR None Seen /HPF (None Seen); WBC,URINE 0-2 /HPF (0-3)
[2022-10-25] MEDS ORDERED: VANCOMYCIN 1 GM /D5W 250 ML PB IV ONE (15:22)
--- NOTE | 2022-10-25 15:28 | NUR ---
ROOMN 260
[2022-10-25] MEDS ORDERED: DEXTROSE 50%-WATER 50 ML DISP.SYRIN IV PRN (15:30)
[2022-10-25] MEDS ORDERED: INSULIN REGULAR, HUMAN 100 UNIT/ML 3 ML VIAL SQ PRN (15:30)
[2022-10-25] MEDS ORDERED: ONDANSETRON HCL/PF 4 MG/2 ML VIAL IVP PRN (15:30)
[2022-10-25] MEDS ORDERED: Z GUARD REMEDY 4 OZ OINT TP PRN (15:30)
[2022-10-25] MEDS ORDERED: MAGNESIUM HYDROXIDE 30 ML UDC PO PRN (15:30)
[2022-10-25] MEDS ORDERED: MAG HYDROX/AL HYDROX/SIMETH 30 ML UDC PO PRN (15:30)
--- NOTE | 2022-10-25 15:39 | NUR ---
HANDOFF REPORT GIVEN TO BROOKE SEGURA IN ICU FOR INPATIENT SERVICES.
[2022-10-25] MEDS ORDERED: ADENOSINE 6 MG/2 ML VIAL ONE (15:54)
[2022-10-25] MEDS ORDERED: ADENOSINE 6 MG/2 ML VIAL IVP ONE ×2 (16:30)
--- NOTE | 2022-10-25 17:29 | NUR ---
PT TRANSPORTED ACLS PROTOCAL RN, RT, AND EMT AT BEDSIDE FOR TRANSPORT. PT WAS STABLE WITH TACHYCARDIA NOTED IN THE 140'S BP, O2 SAT AND RESPERATIONS STABLE THROUGHT TRANSPORT. INSPECTOR MACHINE CUT GLASS AT BEDSIDE TO RECEIVE PT.
[2022-10-25] MEDS ORDERED: DILTIAZEM HCL 50 MG IV IV PRN (17:30)
[2022-10-25] MEDS: BLOOD SUGAR DIAGNOSTIC 1 EACH STRIP VI SCH ×2 (17:54→21:41)
[2022-10-25] MEDS: IV D5/0.45 NACL 1,000 ML IV SCH (17:54)
[2022-10-25 18:00] VITALS: BP_SYST 123; BP_SYST 135; BP_DIAS 61; BP_DIAS 77
[2022-10-25] MEDS: LORAZEPAM INJ 2 MG/ML VIAL IV PRN (18:13)
[2022-10-25 19:00] VITALS: BP 93/66
[2022-10-25] MEDS: PROPOFOL 100 ML IV PRN ×3 (19:00→22:58)
[2022-10-25 20:00] VITALS: BP 100/74
[2022-10-25] MEDS: ACETAMINOPHEN 325 MG TABLET PO PRN (20:18)
[2022-10-25] MEDS: ENOXAPARIN SODIUM 40 MG/0.4 ML DISP.SYRIN SQ SCH (20:20)
--- NOTE | 2022-10-25 20:20 | NUR ---
RN NOTE PT NOTED TO HAVE TEMPERATURE OF 102.7. PT ADMINISTERED TYLENOL 650 MG. HR ALSO NOTED TO BE HIGH AT 141. WILL PROPERLY RETURN CARDIZEM IN OMNICELL AND ASSESS IF COOLING MEASURES AND TYLENOL WILL HELP LOWER HR.
[2022-10-25 21:00] VITALS: BP 101/68
[2022-10-25 22:00] VITALS: BP 101/70
--- NOTE | 2022-10-25 22:57 | NUR ---
ETT CHANGED DUE TO POPPED ETT BALLOON. ER MD AT BEDSIDE.
[2022-10-25 23:00] VITALS: BP 113/70
--- NOTE | 2022-10-25 23:19 | NUR ---
SPRAY WORKER OPENING NOTE PT RECEIVED IN BED, SEDATED WITH COUGH AND GAG REFLEX PRESENT; ABLE TO MOVE ALL FOUR EXTREMITIES WITH STRENGTH OF 2/5. PT WITH ETT SIZE 7.5, 25 CM AT THE LIP, AC 14, TV 550, FIO2 70%, PEEP 5 WITH CURRENT O2SAT OF 100%; NO S/S OF RESP DISTRESS, NO SOB, NON-LABORED AND EQUAL BREATHING. PT ATTACHED TO BEDSIDE MONITOR, ST WITH HR OF 133. FRIED INTACT AND PATENT, DRAINING SHELBI AND CLEAR URINE. NGT IN RIGHT NARE AT 75 CM. IV ACCESS ON RAC 18G AND LAC 20G INTACT AND PATENT, FLUSHES EASILY WITH NO RESISTANCE; PROPOFOL AT 70 MCG/KG/MIN AND D5 1/2 NS AT 75 ML/HR. BILATERAL SOFT WRIST RESTRAINTS IN PLACE WITH NO SIGNS OF IMPAIRED SKIN AND CIRCULATION; WILL PROVIDE PT WITH RELEASE OF RESTRAINTS AND HYGIENE. BED IN LOWEST POSITION, CALL LIGHT WITHIN REACH, SIDE RAILS UP X3. WILL CONTINUE TO MONITOR THROUGHOUT THE NIGHT.
[2022-10-25] MEDS: *INSULIN REGULAR(HUMULIN R)HUM 100 UNIT/ML VIAL SQ PRN (23:58)
[2022-10-26] VITALS (24 sets, daily range): BP systolic 87–135; BP diastolic 59–96
[2022-10-26] MEDS: IV D5/0.45 NACL 1,000 ML IV SCH ×3 (01:38→21:35)
[2022-10-26] MEDS: PROPOFOL 100 ML IV PRN ×8 (01:53→21:31)
[2022-10-26] MEDS ORDERED: LEVETIRACETAM (500MG) 500 MG/5 ML VIAL IV ONE (02:22)
[2022-10-26] MEDS: LEVETIRACETAM (500MG) 1,000 MG in IV NS 0.9% 100 ML IV SCH ×2 (02:24→16:22)
[2022-10-26 04:34] LABS: RED BLOOD CELL COUNT(AUTO) 4.81 MIL/uL (4.5-6.0); WHITE BLOOD COUNT (AUTO) 9.5 K/uL (4.3-11.0)
[2022-10-26 04:35] LABS: BASOPHILS # (AUTO) 0.1 K/uL (0.0-0.2); BASOPHILS % (AUTO) 0.6 % (0.0-2.0); EOSINOPHILS % (AUTO) 2.5 % (0.0-6.0); HEMATOCRIT 42 % (39-51); HEMOGLOBIN 14.2 g/dL (13.5-17.5); LYMPHOCYTES # (AUTO) 0.5 K/uL (0.8-4.8); LYMPHOCYTES % (AUTO) 5.7 % (20.0-44.0); MEAN CORPUSCULAR HGB CONC 34 g/dl (31.0-36.0); MEAN CORPUSCULAR VOLUME 88 fL (80-96); MONOCYTES # (AUTO) 0.5 K/uL (0.1-1.30); MONOCYTES % (AUTO) 4.9 % (2.0-12.0); NEUTROPHILS # (AUTO) 8.2 K/uL (1.8-8.9); NEUTROPHILS % (AUTO) 86.3 % (43.0-81.0); PLATELET COUNT (AUTO) 69 K/uL (150-450)
[2022-10-26 04:55] LABS: BILIRUBIN,DIRECT 0.4 mg/dL (0.0-0.2); BILIRUBIN,TOTAL 1.2 mg/dL (0.2-1.0)
[2022-10-26 05:00] LABS: CALCIUM, SERUM 7.5 mg/dL (8.5-10.1); CREATININE 0.9 mg/dL (0.6-1.3); MAGNESIUM 1.7 mg/dL (1.8-2.4); PHOSPHORUS 2.7 mg/dL (2.5-4.9); POTASSIUM 3.6 mmol/L (3.5-5.1)
[2022-10-26] MEDS: ACETAMINOPHEN 325 MG TABLET PO PRN (05:12)
--- NOTE | 2022-10-26 05:13 | NUR ---
RN NOTE PT WITH TEMPERATURE OF 102.1. PT ADMINISTERED TYLENOL 650 MG WITH COOLING MEASURES IN PLACE.
--- NOTE | 2022-10-26 06:49 | NUR ---
CLIENT SUPPORT REPRESENTATIVE CLOSING NOTE PT REMAINS IN BED, SEDATED, MOVING EXTREMITIES. CONTINUES TO BE ON SAME VENT SETTINGS, TOLERATING WELL WITH O2SAT RANGING FROM 97%-100%; NO S/S OF RESP DISTRESS, NO SOB, NON-LABORED AND EQUAL BREATHING. ATTACHED TO BEDSIDE MONITOR, SR-ST WITH HR RANGING FROM 89-139. FRIED INTACT AND PATENT, DRAINING CLEAR AND SHELBI URINE. BILATERAL SOFT WRIST RESTRAINTS REMAIN IN PLACE; NO SIGNS OF IMPAIRED SKIN OR CIRCULATION; PT PROVIDED WITH RELEASE OF RESTRAINTS AND HYGIENE. NGT IN RIGHT NARE AT 75 CM, POSITIVE PLACEMENT CONFIRMED WITH CHEST X-RAY AND AUSCULTATION. IV ACCESS ON LAC 20G AND RAC 18G, INTACT AND PATENT WITH PROPOFOL INFUSING AT 65 MCG/KG/MIN, D5 1/2 NS AT 100 ML/HR. ALL DUE MEDS ADMINISTERED DURING THE NIGHT. BED IN LOWEST POSITION, CALL LIGHT WITHIN REACH, SIDE RAILS UP X3. WILL ENDORSE TO DAYSHIFT NURSE TO CONTINUE CARE.
--- NOTE | 2022-10-26 08:02 | NUR ---
WOUND CARE CONSULT: PT HAD BEEN REINTUBATED AND IS IMMOBILE. RECOMMENDATIONS MADE FOR SKIN PROTECTION. DISCUSSED WITH NURSING STAFF. MD IN AGREEMENT WITH PLAN OF CARE.
[2022-10-26] MEDS: CEFEPIME 2 GM in IV D5W 100 ML IV SCH ×3 (08:54→21:11)
[2022-10-26] MEDS ORDERED: VANCOMYCIN 1.5 GM in IV D5W 500ml IV ONE (09:00)
[2022-10-26] MEDS: BLOOD SUGAR DIAGNOSTIC 1 EACH STRIP VI SCH ×2 (12:35→18:55)
[2022-10-26] MEDS: Magnesium 1GM/D5W 100ML PREMIX 100 ML IV SCH ×4 (12:35→16:22)
[2022-10-26] MEDS: *INSULIN REGULAR(HUMULIN R)HUM 100 UNIT/ML VIAL SQ PRN (12:45)
[2022-10-26 14:56] LABS: LYMPHOCYTES % (MANUAL) 16 % (16-48); MONOCYTES % (MANUAL) 2 % (0-11.0); NEUTROPHILS % (MANUAL) 82 (42-76)
[2022-10-26] MEDS: INSULIN REGULAR, HUMAN 100 UNIT/ML 3 ML VIAL SQ PRN (17:14)
--- NOTE | 2022-10-26 20:00 | NUR ---
SELLING MANAGER PM note PT RECEIVED IN BED, SEDATED WITH COUGH AND GAG REFLEX PRESENT; ABLE TO MOVE ALL FOUR EXTREMITIES WITH STRENGTH OF 2/5. PT WITH ETT SIZE 7.5, 25 CM AT THE LIP, AC 14, TV 550, FIO2 45%, PEEP 5 WITH CURRENT O2SAT OF 100%; NO S/S OF RESP DISTRESS, NO SOB, NON-LABORED AND EQUAL BREATHING. PT ATTACHED TO BEDSIDE MONITOR, ST WITH HR OF 133. FRIED INTACT AND PATENT, DRAINING SHELBI AND CLEAR URINE. NGT IN RIGHT NARE AT 75 CM. IV ACCESS ON RAC 18G AND LAC 20G INTACT AND PATENT, FLUSHES EASILY WITH NO RESISTANCE; PROPOFOL AT 70 MCG/KG/MIN AND D5 1/2 NS AT 100 ML/HR. BILATERAL SOFT WRIST RESTRAINTS IN PLACE WITH NO SIGNS OF IMPAIRED SKIN AND CIRCULATION; WILL PROVIDE PT WITH RELEASE OF RESTRAINTS AND HYGIENE. BED IN LOWEST POSITION, CALL LIGHT WITHIN REACH, SIDE RAILS UP X3. WILL CONTINUE TO MONITOR THROUGHOUT THE NIGHT.
[2022-10-26] MEDS: ENOXAPARIN SODIUM 40 MG/0.4 ML DISP.SYRIN SQ SCH (21:10)
[2022-10-26] MEDS: VANCOMYCIN 1.25 GM in IV D5W 250 ML IV SCH (21:11)
[2022-10-27] VITALS (24 sets, daily range): BP systolic 99–131; BP diastolic 64–89
[2022-10-27] MEDS: PROPOFOL 100 ML IV PRN ×5 (00:50→23:02)
[2022-10-27] MEDS: BLOOD SUGAR DIAGNOSTIC 1 EACH STRIP VI SCH ×4 (00:51→18:11)
[2022-10-27] MEDS: LEVETIRACETAM (500MG) 1,000 MG in IV NS 0.9% 100 ML IV SCH (02:38)
[2022-10-27] MEDS: IV D5/0.45 NACL 1,000 ML IV SCH (02:39)
[2022-10-27] MEDS: *INSULIN REGULAR(HUMULIN R)HUM 100 UNIT/ML VIAL SQ PRN ×2 (02:47→05:38)
[2022-10-27] MEDS: CEFEPIME 2 GM in IV D5W 100 ML IV SCH ×3 (05:31→20:52)
[2022-10-27 05:43] LABS: ALBUMIN 2.7 g/dL (3.4-5.0); BILIRUBIN,DIRECT 0.4 mg/dL (0.0-0.2); BILIRUBIN,TOTAL 1.3 mg/dL (0.2-1.0); CALCIUM, SERUM 7.7 mg/dL (8.5-10.1); CREATININE 0.8 mg/dL (0.6-1.3); MAGNESIUM 1.7 mg/dL (1.8-2.4); PHOSPHORUS 1.3 mg/dL (2.5-4.9); TOTAL PROTEIN, SERUM 5.8 g/dL (6.4-8.2)
--- NOTE | 2022-10-27 05:44 | NUR ---
RT pt received orally intubated, ETT 7.5 25@ teeth on current settings. settings: AC 14 550 45% +5. ambu bag at bedside. alarms on and audible. no complications during the night.
--- NOTE | 2022-10-27 06:00 | NUR ---
INFORMATION ASSURANCE MANAGER PM NOTE PT RECEIVED IN BED, SEDATED WITH COUGH AND GAG REFLEX PRESENT; ABLE TO MOVE ALL FOUR EXTREMITIES WITH STRENGTH OF 2/5. PT WITH ETT SIZE 7.5, 25 CM AT THE LIP, AC 14, TV 550, FIO2 45%, PEEP 5 WITH CURRENT O2SAT OF 100%; NO S/S OF RESP DISTRESS, NO SOB, NON-LABORED AND EQUAL BREATHING. PT ATTACHED TO BEDSIDE MONITOR, ST WITH HR OF 109. FRIED INTACT AND PATENT, DRAINING SHELBI AND CLEAR URINE. NGT IN RIGHT NARE AT 75 CM. IV ACCESS ON RAC 18G AND LAC 20G INTACT AND PATENT, FLUSHES EASILY WITH NO RESISTANCE; PROPOFOL AT 80 MCG/KG/MIN AND D5 1/2 NS AT 100 ML/HR. BILATERAL SOFT WRIST RESTRAINTS IN PLACE WITH NO SIGNS OF IMPAIRED SKIN AND CIRCULATION; WILL PROVIDE PT WITH RELEASE OF RESTRAINTS AND HYGIENE. BED IN LOWEST POSITION, CALL LIGHT WITHIN REACH, SIDE RAILS UP X3. WILL CONTINUE TO MONITOR THROUGHOUT THE NIGHT.
[2022-10-27] MEDS: VANCOMYCIN 1.25 GM in IV D5W 250 ML IV SCH ×2 (08:23→21:29)
[2022-10-27 08:27] LABS: BASOPHILS % (AUTO) 0.6 % (0.0-2.0); EOSINOPHILS % (AUTO) 0.2 % (0.0-6.0); HEMATOCRIT 40 % (39-51); HEMOGLOBIN 13.5 g/dL (13.5-17.5); LYMPHOCYTES # (AUTO) 0.7 K/uL (0.8-4.8); LYMPHOCYTES % (AUTO) 13.5 % (20.0-44.0); MEAN CORPUSCULAR HGB CONC 34 g/dl (31.0-36.0); MEAN CORPUSCULAR VOLUME 87 fL (80-96); MONOCYTES # (AUTO) 0.4 K/uL (0.1-1.30); MONOCYTES % (AUTO) 6.9 % (2.0-12.0); NEUTROPHILS # (AUTO) 4.3 K/uL (1.8-8.9); NEUTROPHILS % (AUTO) 78.8 % (43.0-81.0); PLATELET COUNT (AUTO) 56 K/uL (150-450); RED BLOOD CELL COUNT(AUTO) 4.56 MIL/uL (4.5-6.0); WHITE BLOOD COUNT (AUTO) 5.5 K/uL (4.3-11.0)
[2022-10-27] MEDS ORDERED: Magnesium 1GM/D5W 100ML PREMIX 100 ML IV SCH (09:00)
[2022-10-27] MEDS: POTASSIUM PHOSPHATE MM 7.5 MMOL in IV NS 0.9% 100 ML IV SCH ×2 (09:08→12:11)
[2022-10-27] MEDS ORDERED: MAGNESIUM HYDROXIDE 30 ML UDC GT PRN (09:35)
[2022-10-27] MEDS ORDERED: MAG HYDROX/AL HYDROX/SIMETH 30 ML UDC GT PRN (09:36)
[2022-10-27] MEDS ORDERED: ACETAMINOPHEN 650 MG/20.3 ML UDC PO PRN (10:00)
[2022-10-27] MEDS ORDERED: ACETAMINOPHEN 650 MG/20.3 ML UDC GT PRN (10:00)
[2022-10-27] MEDS: POTASSIUM CL. PREMIX PERIPHER. 50 ML IV SCH ×4 (10:18→13:22)
[2022-10-27] MEDS ORDERED: POTASSIUM CHLORIDE 20 MEQ TAB.PRT.SR PO SCH (10:30)
[2022-10-27] MEDS: INSULIN REGULAR, HUMAN 100 UNIT/ML 3 ML VIAL SQ PRN ×2 (13:11→18:14)
[2022-10-27 15:34] LABS: BAND % (MANUAL) 5 % (0.0-5.0); LYMPHOCYTES % (MANUAL) 9 % (16-48); MONOCYTES % (MANUAL) 3 % (0-11.0); NEUTROPHILS % (MANUAL) 83 (42-76)
--- NOTE | 2022-10-27 18:30 | NUR ---
EARTH MOVER 7A-7P SHIFT NOTE PT RECEIVED SEDATED OFF SEDATION SINCE 1030 (+) COUGH AND GAG REFLEX PRESENT; ABLE TO MOVE ALL FOUR EXTREMITIES, RESTRAINTS IN PLACE FOR SAFETY. NO SIGNS OF IMPAIRED SKIN AND CIRCULATION PT REMAINS INTUBATED. ETT SIZE 7.5, 25 CM AT THE LIP, AC 14, TV 550, FIO2 45%, PEEP 5 WITH CURRENT O2SAT OF 100%; TOLERATED SIMV FOR 4HRS NO S/S OF RESP DISTRESS, NO SOB, NON-LABORED AND EQUAL BREATHING. SR-ST WITH HR OF 80 - 109. FRIED INTACT AND PATENT, DRAINING SHELBI AND CLEAR URINE. NGT IN RIGHT NARE AT 75 CM. IV ACCESS ON RAC 18G AND LAC 20G INTACT AND PATENT, FLUSHES EASILY WITH NO RESISTANCE; NEW MIDLINE INSERTED TO LUE PROPOFOL REMAINS OFF D5 1/2 NS AT 100 ML/HR. ; BED IN LOWEST POSITION, CALL LIGHT WITHIN REACH, SIDE RAILS UP X4. CONT TO IMPLEMENT PLAN OF CARE
[2022-10-27] MEDS: IV D5/ 0.9% NACL 1,000 ML IV PRN (19:23)
--- NOTE | 2022-10-27 19:31 | NUR ---
ICU/RN: PT AGITATED TRASHING HEAD FROM SIDE TO SIDE AND CHEWING ON ETT. PT DOES NOT FOLLOW COMMANDS OR OPEN EYES WHEN STIMULATED. PROPOFOL RESTARTED ORDERED.
[2022-10-27] MEDS: LEVETIRACETAM SOL (5 ML) 100 MG/ML UDC GT SCH (20:50)
[2022-10-27] MEDS: LORAZEPAM INJ 2 MG/ML VIAL IV PRN (20:50)
--- NOTE | 2022-10-27 21:01 | NUR ---
ICU/RN: PT STILL VERY AGITATED TRASHING AROUND IN BED AND ATTEMPTING TO PULL ETT. PROPOFOL TITRATION ORDERED AND PRN ATIVAN ADMINISTERED.
[2022-10-28] VITALS (24 sets, daily range): BP systolic 102–134; BP diastolic 66–93
[2022-10-28] MEDS: BLOOD SUGAR DIAGNOSTIC 1 EACH STRIP VI SCH ×4 (00:30→17:21)
[2022-10-28] MEDS: INSULIN REGULAR, HUMAN 100 UNIT/ML 3 ML VIAL SQ PRN ×4 (00:31→17:20)
[2022-10-28] MEDS: PROPOFOL 100 ML IV PRN (03:59)
[2022-10-28 05:33] LABS: BASOPHILS % (AUTO) 0.4 % (0.0-2.0); EOSINOPHILS % (AUTO) 2.6 % (0.0-6.0); HEMATOCRIT 40 % (39-51); HEMOGLOBIN 13.2 g/dL (13.5-17.5); LYMPHOCYTES # (AUTO) 0.9 K/uL (0.8-4.8); LYMPHOCYTES % (AUTO) 16.4 % (20.0-44.0); MEAN CORPUSCULAR HGB CONC 33 g/dl (31.0-36.0); MEAN CORPUSCULAR VOLUME 87 fL (80-96); MONOCYTES # (AUTO) 0.5 K/uL (0.1-1.30); MONOCYTES % (AUTO) 8.8 % (2.0-12.0); NEUTROPHILS # (AUTO) 3.9 K/uL (1.8-8.9); NEUTROPHILS % (AUTO) 71.8 % (43.0-81.0); PLATELET COUNT (AUTO) 68 K/uL (150-450); RED BLOOD CELL COUNT(AUTO) 4.61 MIL/uL (4.5-6.0); WHITE BLOOD COUNT (AUTO) 5.5 K/uL (4.3-11.0)
[2022-10-28] MEDS: IV D5/ 0.9% NACL 1,000 ML IV PRN ×3 (05:33→18:51)
[2022-10-28] MEDS: CEFEPIME 2 GM in IV D5W 100 ML IV SCH ×3 (05:33→20:30)
[2022-10-28 06:18] LABS: CALCIUM, SERUM 7.7 mg/dL (8.5-10.1); CREATININE 0.6 mg/dL (0.6-1.3); MAGNESIUM 2.2 mg/dL (1.8-2.4); PHOSPHORUS 1.6 mg/dL (2.5-4.9); POTASSIUM 3.6 mmol/L (3.5-5.1)
--- NOTE | 2022-10-28 07:00 | NUR ---
RN NOTES RECEIVED PT ON BED INTUBATED AND SEDATED ON DIPRIVAN , TOLERATING VENT SETTING WELL, ON TELE SR HR IN 80'S, FRIED DRAINING TO GRAVITY, NGT CLAMPED AT THIS TIME , IV SITE CDI, , SR UP x3, CALL LIGHT WITHIN EASY REACH, BED LOCKED AND IN LOWEST POSITION, CONTINUE TO MONITOR.
[2022-10-28] MEDS ORDERED: GLUCERNA 1.2 1,000 ML BOTTLE NG PRN ×2 (08:00→09:28)
[2022-10-28] MEDS: LEVETIRACETAM SOL (5 ML) 100 MG/ML UDC GT SCH ×2 (08:02→20:30)
[2022-10-28] MEDS: POTASSIUM PHOSPHATE MM 7.5 MMOL in IV NS 0.9% 100 ML IV SCH ×2 (09:01→12:11)
[2022-10-28] MEDS: VANCOMYCIN 1.25 GM in IV D5W 250 ML IV SCH ×2 (09:01→16:07)
[2022-10-28 10:48] LABS: ABG BASE EXCESS 2.9 mmol/L; ABG OXYGEN SATURATION 98.3 % (92.0-98.5); ABG PCO2 37.1 mmHg (35.0-45.0); ABG PH 7.472 (7.350-7.450); ABG PO2 112.5 mmHg (75.0-100.0); COHb 0.6 % (0.5-1.5); O2Hb 97.7 % (94.0-97.0); SITE, ABG Right Radial; VENT MODE, BG simv 4 psv 12 peep+5 40
--- NOTE | 2022-10-28 12:00 | NUR ---
RN NOTES PT STAYS OFF DIPRIVAN , DOES NOTE FOLLOW COMMAND , TOLERATING SIMV MODE WELL, O2 SAT WNL, ORAL AND ET SUCTIONING DONE, NEEDED, CONTINUE TO MONITOR
[2022-10-28 12:56] LABS: BAND % (MANUAL) 3 % (0.0-5.0); NEUTROPHILS % (MANUAL) 75 (42-76)
[2022-10-28 12:57] LABS: BASOPHILS % (MANUAL) 0 % (0.0-2.0); EOSINOPHILS % (MANUAL) 2 % (0-4); LYMPHOCYTES % (MANUAL) 14 % (16-48); MONOCYTES % (MANUAL) 6 % (0-11.0)
--- NOTE | 2022-10-28 15:00 | NUR ---
RN NOTES SUPPORTIVE FAMILY AT THE BEDSIDE, PT ON SIMV MODE , NO DISTESS NOTED AT THIS TIME.
[2022-10-28] MEDS ORDERED: Sodium Phosphate 15 MMOL in IV NS 0.9% 245 ML IV SCH (16:00)
--- NOTE | 2022-10-28 18:00 | NUR ---
RN NOTES PT STAYS OFF DIPRIVAN , DOES NOT FOLLOW COMMAND , TOLERATING SIMV MODE WELL, O2 SAT WNL, ORAL AND ET SUCTIONING DONE NEEDED, SR UP x3, CALL LIGHT WITHIN EASY REACH, BED LOCKED AND IN LOWEST POSITION, WILL ENDORSE TO BOILER WASHER NURSE FOR CONTINUITY OF CARE .
[2022-10-29] VITALS (24 sets, daily range): BP systolic 103–124; BP diastolic 62–85
[2022-10-29] MEDS: VANCOMYCIN 1.25 GM in IV D5W 250 ML IV SCH ×3 (00:38→17:17)
[2022-10-29] MEDS: BLOOD SUGAR DIAGNOSTIC 1 EACH STRIP VI SCH ×4 (00:38→17:15)
[2022-10-29] MEDS: INSULIN REGULAR, HUMAN 100 UNIT/ML 3 ML VIAL SQ PRN ×4 (00:45→17:19)
[2022-10-29] MEDS: IV D5/ 0.9% NACL 1,000 ML IV PRN ×2 (05:14→14:34)
[2022-10-29] MEDS: CEFEPIME 2 GM in IV D5W 100 ML IV SCH ×3 (05:14→21:15)
[2022-10-29 05:36] LABS: BASOPHILS % (AUTO) 0.3 % (0.0-2.0); EOSINOPHILS % (AUTO) 1.8 % (0.0-6.0); HEMATOCRIT 37 % (39-51); HEMOGLOBIN 12.6 g/dL (13.5-17.5); LYMPHOCYTES # (AUTO) 0.8 K/uL (0.8-4.8); LYMPHOCYTES % (AUTO) 12.5 % (20.0-44.0); MEAN CORPUSCULAR HGB CONC 34 g/dl (31.0-36.0); MEAN CORPUSCULAR VOLUME 87 fL (80-96); MONOCYTES % (AUTO) 15.3 % (2.0-12.0); NEUTROPHILS # (AUTO) 4.8 K/uL (1.8-8.9); NEUTROPHILS % (AUTO) 70.1 % (43.0-81.0); PLATELET COUNT (AUTO) 104 K/uL (150-450); WHITE BLOOD COUNT (AUTO) 6.8 K/uL (4.3-11.0)
[2022-10-29 05:58] LABS: CALCIUM, SERUM 8.4 mg/dL (8.5-10.1); CREATININE 0.6 mg/dL (0.6-1.3); PHOSPHORUS 2.2 mg/dL (2.5-4.9); POTASSIUM 3.5 mmol/L (3.5-5.1)
--- NOTE | 2022-10-29 07:17 | NUR ---
ICU/RN PT RECEIVED IN BED, RESTING, EYES CLOSED. PT INTUBATED ON SIMV MODE, SAT 100% ON BEDSIDE MONITOR, PT IS NOT FIGHTING VENT OR AGITATED AT THIS TIME. PT FOLLOWING SIMPLE COMMANDS. SR ON MONITOR. NGT IN PLACE, CLAMPED. LEFT UA MIDLINE IN PLACE RUNNING D5NS AT 100MLS/HR. FRIED CATH IN PLACE, PATENT AND DRAINING CLEAR URINE. BED LOCKED AND IN LOWEST POSITION, CALL LIGHT WITHIN REACH, 3 SIDE RAILS UP.
[2022-10-29 07:57] LABS: ABG PCO2 39.6 mmHg (35.0-45.0); ABG PH 7.439 (7.350-7.450); ABG PO2 107.7 mmHg (75.0-100.0); MetHb 0.2 % (0.0-1.5); O2Hb 96.8 % (94.0-97.0); SITE, ABG Left Radial; VENT MODE, BG SIMV 4 550 +5 40% PS 12
[2022-10-29] MEDS: LEVETIRACETAM SOL (5 ML) 100 MG/ML UDC GT SCH ×2 (08:15→21:15)
[2022-10-29] MEDS: POTASSIUM PHOSPHATE MM 7.5 MMOL in IV NS 0.9% 100 ML IV SCH ×2 (09:10→12:10)
--- NOTE | 2022-10-29 09:15 | NUR ---
ICU/RN PT EXTUBATED BY RT PER ORDER. PT TOLERATED WELL. O2 SAT 96% ON BEDSIDE MONITOR. PT FOLLOWING SIMPLE COMMANDS.
[2022-10-29] MEDS ORDERED: IV NS 0.9% 250 ML IV PRN (15:00)
[2022-10-30] VITALS (18 sets, daily range): BP systolic 106–126; BP diastolic 47–85
[2022-10-30] MEDS: INSULIN REGULAR, HUMAN 100 UNIT/ML 3 ML VIAL SQ PRN ×5 (00:40→23:59)
[2022-10-30] MEDS: BLOOD SUGAR DIAGNOSTIC 1 EACH STRIP VI SCH ×5 (00:40→23:56)
[2022-10-30] MEDS: VANCOMYCIN 1.25 GM in IV D5W 250 ML IV SCH (00:42)
[2022-10-30 04:41] LABS: BASOPHILS % (AUTO) 0.7 % (0.0-2.0); EOSINOPHILS % (AUTO) 2.4 % (0.0-6.0); HEMATOCRIT 38 % (39-51); HEMOGLOBIN 12.5 g/dL (13.5-17.5); LYMPHOCYTES # (AUTO) 1.2 K/uL (0.8-4.8); LYMPHOCYTES % (AUTO) 21.3 % (20.0-44.0); MEAN CORPUSCULAR HGB CONC 33 g/dl (31.0-36.0); MEAN CORPUSCULAR VOLUME 89 fL (80-96); MONOCYTES # (AUTO) 1.2 K/uL (0.1-1.30); MONOCYTES % (AUTO) 20.6 % (2.0-12.0); NEUTROPHILS # (AUTO) 3.1 K/uL (1.8-8.9); PLATELET COUNT (AUTO) 132 K/uL (150-450); RED BLOOD CELL COUNT(AUTO) 4.27 MIL/uL (4.5-6.0); WHITE BLOOD COUNT (AUTO) 5.6 K/uL (4.3-11.0)
[2022-10-30 04:50] LABS: CALCIUM, SERUM 8.2 mg/dL (8.5-10.1); CREATININE 0.5 mg/dL (0.6-1.3); POTASSIUM 3.2 mmol/L (3.5-5.1)
[2022-10-30] MEDS: IV D5/ 0.9% NACL 1,000 ML IV PRN ×2 (05:00→17:29)
[2022-10-30] MEDS: CEFEPIME 2 GM in IV D5W 100 ML IV SCH ×3 (05:02→21:52)
--- NOTE | 2022-10-30 07:29 | NUR ---
RN OPENING NOTE RN OBSERVED IN BED SLEEPING AND ON RA TOLERATING WELL WITH NO SIGNS OF DISTRESS OR LABORED BREATHING O2 SAT 99%. PT EXTUBATED PREVIOUS DAY WITHOUT COMPLICATION. PT IS SR AT THIS TIME. FC IN PLACE DRAINING URINE TO GRAVITY. NGT IN PLACE AND CLAMPED AT THIS TIME. IV ACCESS L UA ML INFUSING WITH D5NS @70ML/HR. BED IS LOCKED IN LOWEST POSITION X2 BED RAILS UP AND ALL HOSPITAL SAFETY MEASURES ARE IN PLACE. WILL CONTINUE TO MONITOR THIS SHIFT.
[2022-10-30] MEDS: POTASSIUM CL. PREMIX PERIPHER. 50 ML IV SCH ×4 (08:04→12:09)
[2022-10-30] MEDS: LEVETIRACETAM SOL (5 ML) 100 MG/ML UDC GT SCH (10:42)
[2022-10-30] MEDS ORDERED: MAGNESIUM HYDROXIDE 30 ML UDC PO PRN (11:55)
[2022-10-30] MEDS ORDERED: MAG HYDROX/AL HYDROX/SIMETH 30 ML UDC PO PRN (11:57)
[2022-10-30] MEDS ORDERED: ACETAMINOPHEN 325 MG TABLET PO PRN (12:00)
[2022-10-30 13:19] LABS: BAND % (MANUAL) 2 % (0.0-5.0); BASOPHILS % (MANUAL) 0 % (0.0-2.0); EOSINOPHILS % (MANUAL) 4 % (0-4); LYMPHOCYTES % (MANUAL) 18 % (16-48); MONOCYTES % (MANUAL) 16 % (0-11.0); NEUTROPHILS % (MANUAL) 60 (42-76)
--- NOTE | 2022-10-30 15:35 | NUR ---
RN NOTE: TRANSFER PT TRANSFERRED USING ACLS PROTOCOLS AND TRANSFERRED WITH ALL BELONGINGS. PT STABLE AT THIS TIME AND REPORT GIVEN TO IMELDA DORSEY.
--- NOTE | 2022-10-30 15:41 | NUR ---
MANAGER [place] NOTES RECEIVED PT FROM MERINGUER CHARLEY VIA BED, PT IS SLEEPY. AROUSABLE BY NAME AND PAINFUL STIMULI, GOES BACK TO SLEEP, RESPIRATIONS NORMAL, NO SIGN OF PAIN, IV FLUIDS INFUSING WELL, FRIED IN PLACE, DRAINING CLEAR, YELLOW URINE, SINUS RHYTHM ON THE MONITOR, KEPT PT WARM AND COMFORTABLE.
--- NOTE | 2022-10-30 18:01 | NUR ---
RN MS NOTES PT IN BED, ASLEEP, EASY TO AROUSE BY NAME AND PAINFUL STIMULI, ABLE TO REPOSITION SELF, NO SIGN OF PAIN OR RESPIRATORY DISTRESS, IV FLUIDS INFUSING WELL, F/C INTACT, DRAINING WELL, MOM VISITED, KEPT WARM AND COMFORTABLE IN BED.
--- NOTE | 2022-10-30 19:30 | NUR ---
RIPSAW MATCHER OPENING NOTE RECEIVED PT SLEEPING IN BED, EASY TO AROUSE. PT ON ROOM AIR, TOLERATING WELL. NO SIGN OF PAIN OR DISCOMFORT AT THIS TIME, NO SOB, NO RESPIRATORY DISTRESS NOTED. IV ACCESS TO LEFT AC #20G, AND TO RIGHT AC #20G, AND MIDLINE TO LEFT UA INFUSING D5 NS AT 70 ML/HR. FRIED CATHETER IN PLACE, DRAINING CLEAR, YELLOW URINE. PT ON TELE MONITOR READING SINUS RHYTHM WITH HR IN 60'S. SAFETY MEASURES IN PLACE: BED IN LOW POSITION, SR UP x2, CALL LIGHT WITHIN REACH. WILL CONTINUE TO MONITOR PT.
[2022-10-30] MEDS: LEVETIRACETAM (250 MG) 250 MG TABLET PO SCH (21:51)
[2022-10-31] MEDS: CEFEPIME 2 GM in IV D5W 100 ML IV SCH ×3 (05:25→20:35)
[2022-10-31] MEDS: BLOOD SUGAR DIAGNOSTIC 1 EACH STRIP VI SCH ×4 (05:26→23:29)
[2022-10-31] MEDS: INSULIN REGULAR, HUMAN 100 UNIT/ML 3 ML VIAL SQ PRN ×4 (05:29→23:34)
[2022-10-31 05:43] LABS: BASOPHILS # (AUTO) 0.1 K/uL (0.0-0.2); BASOPHILS % (AUTO) 1.8 % (0.0-2.0); HEMATOCRIT 41 % (39-51); HEMOGLOBIN 14.2 g/dL (13.5-17.5); LYMPHOCYTES # (AUTO) 0.6 K/uL (0.8-4.8); LYMPHOCYTES % (AUTO) 9.6 % (20.0-44.0); MEAN CORPUSCULAR HGB CONC 35 g/dl (31.0-36.0); MEAN CORPUSCULAR VOLUME 86 fL (80-96); MONOCYTES # (AUTO) 1.2 K/uL (0.1-1.30); MONOCYTES % (AUTO) 20.4 % (2.0-12.0); NEUTROPHILS # (AUTO) 3.8 K/uL (1.8-8.9); NEUTROPHILS % (AUTO) 63.2 % (43.0-81.0); PLATELET COUNT (AUTO) 208 K/uL (150-450); RED BLOOD CELL COUNT(AUTO) 4.77 MIL/uL (4.5-6.0)
[2022-10-31 05:58] LABS: CREATININE 0.7 mg/dL (0.6-1.3); MAGNESIUM 1.8 mg/dL (1.8-2.4); PHOSPHORUS 2.4 mg/dL (2.5-4.9); POTASSIUM 3.3 mmol/L (3.5-5.1)
--- NOTE | 2022-10-31 06:32 | NUR ---
COMMUNITY SERVICE AIDE CLOSING NOTE PT SLEEPING IN BED, EASY TO AROUSE. ON ROOM AIR, TOLERATING WELL. NO SIGN OF PAIN OR DISCOMFORT AT THIS TIME, NO SOB, NO RESPIRATORY DISTRESS NOTED. IV ACCESS TO LEFT AC #20G, AND TO RIGHT AC #20G, AND MIDLINE TO LEFT UA INFUSING D5 NS AT 70 ML/HR. FRIED CATHETER IN PLACE, DRAINING CLEAR, YELLOW URINE, URINE OUTPUT: 1100ML. PT ON TELE MONITOR READING SINUS RHYTHM WITH HR IN 60'S. SAFETY MEASURES IN PLACE: BED IN LOW POSITION, SR UP x2, CALL LIGHT WITHIN REACH. WILL ENDORSE PT TO INCOMING SHIFT NURSE FOR MARIELLA.
--- NOTE | 2022-10-31 07:17 | NUR ---
STERILIZATION TECH OPENING NOTES RECEIVED PATIENT LYING IN BED, SLEEPING, AROUSABLE TO VERBAL STIMULI, PATIENT IS A/OX2, ABLE TO MAKE HIS NEEDS KNOWN, APPEARS TO BE COMFORTABLE, DENIES ANY PAIN OR DISCOMFORT, PATIENT IS ON RA, BREATHING EVEN AND UNLABORED, NO DISTRESS OR SOB NOTED, IV ACCESS ON KRISTIAN #18, INTACT WITH D5NS AT 70 ML/HR, NO INFILTRATION NOTED, PATIENT WITH EXTERNAL PRESS FEEDER WITH CURRENT READING OF SR 67, NO CARDIAC DISTRESS NOTED, FALL AND SAFETY IN PLACE, BED ALARM ON, BED IN LOW AND LOCK POSITION, CALL LIGHT AND TABLE WITHIN EASY REACH, SIDE RAILS UP X2, WILL CONTINUE TO MONITOR. Addendum: 10/31/22 at 0751 by ROCK ROBERT MEMBRENO RN STERILIZATION TECH OPENING NOTES ([id number]) RECEIVED PATIENT LYING IN BED, SLEEPING, AROUSABLE TO VERBAL STIMULI, PATIENT IS A/OX2, ABLE TO MAKE HIS NEEDS KNOWN, APPEARS TO BE COMFORTABLE, DENIES ANY PAIN OR DISCOMFORT, PATIENT IS ON RA, BREATHING EVEN AND UNLABORED, NO DISTRESS OR SOB NOTED, IV ACCESS ON KRISTIAN #18, INTACT WITH D5NS AT 70 ML/HR, NO INFILTRATION NOTED, PATIENT WITH EXTERNAL PRESS FEEDER WITH CURRENT READING OF SR 67, NO CARDIAC DISTRESS NOTED, PATIENT HAS A FC, INTACT WITH NOTED CLEAR YELLOW URINE DRAINING, FALL AND SAFETY IN PLACE, BED ALARM ON, BED IN LOW AND LOCK POSITION, CALL LIGHT AND TABLE WITHIN EASY REACH, SIDE RAILS UP X2, WILL CONTINUE TO MONITOR.
[2022-10-31 08:00] VITALS: BP 125/76
[2022-10-31 08:19] LABS: EOSINOPHILS % (MANUAL) 1 % (0-4); LYMPHOCYTES % (MANUAL) 20 % (16-48); MONOCYTES % (MANUAL) 19 % (0-11.0); NEUTROPHILS % (MANUAL) 60 (42-76)
[2022-10-31] MEDS: LEVETIRACETAM (250 MG) 250 MG TABLET PO SCH ×2 (08:34→20:46)
--- NOTE | 2022-10-31 08:44 | NUR ---
RN NOTES ABG DONE BY RT FORMAN AND HE VERBALIZED THAT RESULTS WERE OK AND HE SHOWED THE RESULTS TO DR HICKMAN WITH ORDER TO D/C ALL DAILY ABG DRAW FOR NOW.
[2022-10-31] MEDS: IV D5/ 0.9% NACL 1,000 ML IV PRN (10:25)
[2022-10-31 10:51] LABS: ABG BASE EXCESS 3.9 mmol/L; ABG PCO2 31.7 mmHg (35.0-45.0); ABG PH 7.531 (7.350-7.450); ABG PO2 74.3 mmHg (75.0-100.0); AaDO2 37.5 mmHg; SITE, ABG Left Radial; VENT MODE, BG 21%
[2022-10-31] MEDS ORDERED: POTASSIUM CHLORIDE 20 MEQ POWDER PACKET PO SCH (11:00)
[2022-10-31] MEDS ORDERED: NEUTRA PHOS 1 POWD.PACKET PO ONE (16:00)
[2022-10-31 16:03] VITALS: BP 114/59
--- NOTE | 2022-10-31 18:38 | NUR ---
ELECTION CLERK CLOSING NOTES PATIENT IS LYING IN BED, SLEEPING, AROUSABLE TO VERBAL STIMULI, PATIENT IS A/OX2, ABLE TO MAKE HIS NEEDS KNOWN, APPEARS TO BE COMFORTABLE, DENIES ANY PAIN OR DISCOMFORT, PATIENT IS ON RA, BREATHING EVEN AND UNLABORED, NO DISTRESS OR SOB NOTED, IV ACCESS ON KRISTIAN #18, INTACT WITH D5NS AT 70 ML/HR, NO INFILTRATION NOTED, PATIENT WITH EXTERNAL PEER COUNSELOR WITH CURRENT READING OF SR/SB 57, NO CARDIAC DISTRESS NOTED, PATIENT HAS A FC, INTACT WITH NOTED CLEAR YELLOW 1500 URINE OUTPUT, FALL AND SAFETY IN PLACE AND MAINTAINED AT ALL TIME, BED ALARM ON, BED IN LOW AND LOCK POSITION, CALL LIGHT AND TABLE WITHIN EASY REACH, SIDE RAILS UP X2, SCHEDULED MEDICATIONS ADMINISTERED, ALL NEEDS ATTENDED AND ANTICIPATED, WILL ENDORSED POC TO SWEATER DESIGNER NURSE.
--- NOTE | 2022-10-31 19:35 | NUR ---
BLOCK CUTTER NOTES RECEIVED LYING ON BED SLEEPING,EASILY AROUSABLE TO VERBAL STIMULI,BREATHING REGULAR.NOT IN ANY FORM OF DISTRESS,WITH 100% O2 SAT ON ROOM AIR.SALINE LOCK RUM MIDLINE,WITH IVF D5NS INFUSING WELL AT 70ML/HR RATE,SITE PATENT.NO S/S OF INFILTRATION NOTED.FALL PRECAUTION OBSERVED,BED ALARM,BED ON LOWEST POSITION AND LOCKED,DVT PUMP IN USED FOR DVT PROPHYLAXIS.NOT ON CHEMICAL PROHYLAXIS DUE LOW HEMOGLOBIN.WILL CONTINUE TO MONITOR STATUS.CALL LIGHT IN REACH,NEEDS ANTICIPATED.
[2022-10-31 19:52] VITALS: BP 119/79
[2022-10-31 20:05] VITALS: BP 119/79
--- NOTE | 2022-10-31 23:30 | NUR ---
TEACHING ASSISTANT NOTES ACCU-CHECK BLOOD SUGAR CHECK 205MG/DL,COVERED WITH HUMULIN R 6 UNITS PER SLIDING SCALE.IVF INFUSING WELL ON LEFT UPPER ARM MIDLINE.
[2022-11-01] VITALS (8 sets, daily range): BP systolic 106–134; BP diastolic 59–79
[2022-11-01] MEDS: IV D5/ 0.9% NACL 1,000 ML IV PRN (02:42)
[2022-11-01] MEDS: CEFEPIME 2 GM in IV D5W 100 ML IV SCH ×3 (04:58→20:04)
[2022-11-01] MEDS: BLOOD SUGAR DIAGNOSTIC 1 EACH STRIP VI SCH ×4 (05:30→23:02)
--- NOTE | 2022-11-01 05:30 | NUR ---
CONTACT CENTER REP NOTES ACCU-CHECK BLOOD SUGAR CHECK 192,COVERED WITH HUMULIN R 3 UNITS PER SLIDING SCALE.
[2022-11-01] MEDS: INSULIN REGULAR, HUMAN 100 UNIT/ML 3 ML VIAL SQ PRN ×4 (05:32→23:04)
--- NOTE | 2022-11-01 05:40 | NUR ---
HOSPITALIST NOCTURNIST PHYSICIAN NOTES C/O CHEST PAIN,SB ON TELE MONITOR, HR-30, RT AT BEDSIDE TO DO STAT EKG.
--- NOTE | 2022-11-01 06:00 | NUR ---
PRESIDENT AND CHIEF COMMERCIAL OFFICER NOTES EKG SR,RATE OF 58.
--- NOTE | 2022-11-01 06:42 | NUR ---
STAFFING CONSULTANT NOTES FAIRLY RESTED AT NIGHT.REMAINS SR-SB ON TELE MONITOR,LOWEST WAS ON THE 30'S.ABLE TO REPOSITION SELF.SALINE LOCK LEFT AC REMOVED,NON FLUSHABLE THIS TIME.NOTED MIDLINE SITE WITH SLIGHT REDNESS NOTED.IVF INFUSING THIS TIME ON RIGHT AC SALINE LOCK.FRIED CATH DRAINS WELL ,EMPTIED 1200ML OF CLEAR YELLOW URINE .IN NO ACUTE DISTRESS.
[2022-11-01 06:58] LABS: CALCIUM, SERUM 8.7 mg/dL (8.5-10.1); CREATININE 0.6 mg/dL (0.6-1.3); POTASSIUM 3.7 mmol/L (3.5-5.1)
--- NOTE | 2022-11-01 07:18 | NUR ---
GRAPHIC ART SALES REPRESENTATIVE OPENING NOTES RECEIVED PATIENT LYING IN BED, SLEEPING, AROUSABLE TO VERBAL STIMULI, PATIENT IS A/OX2-3, ABLE TO MAKE HIS NEEDS KNOWN, APPEARS TO BE COMFORTABLE, DENIES ANY PAIN OR DISCOMFORT, PATIENT IS ON RA, BREATHING EVEN AND UNLABORED, NO DISTRESS OR SOB NOTED, IV ACCESS ON RAC #20, INTACT WITH D5NS AT 70 ML/HR, NO INFILTRATION NOTED, PATIENT WITH EXTERNAL JEWELRY DRILL OPERATOR WITH CURRENT READING OF SB AT THIS TIME WITH A HEART RATE OF 58 BPM, NO CARDIAC DISTRESS NOTED, PATIENT HAS A FC, INTACT WITH NOTED CLEAR YELLOW URINE DRAINING, FALL AND SAFETY IN PLACE, BED ALARM ON, BED IN LOW AND LOCK POSITION, CALL LIGHT AND TABLE WITHIN EASY REACH, SIDE RAILS UP X2, WILL CONTINUE TO MONITOR.
[2022-11-01] MEDS: LEVETIRACETAM (250 MG) 250 MG TABLET PO SCH ×2 (08:36→20:33)
--- NOTE | 2022-11-01 13:22 | NUR ---
SW Consult: Social work consult was requested for alcohol abuse. Patient brought to the hospital due to Respiratory failure. Patient was sleeping and did not respond. Patient's family was near pt. Patient's mother Sandra ([phone]) and friend Delicia was bedside. Mother stated that she flew from [place] because she found out pt was at the hospital. Per pt's mother Sandra, she stated that pt is an alcoholic. Mother was unable to give information due to not having information about pt's current life situation. SW was unable to assess the pt or gather any information. Mother stated that he lives at home located at [address] [address]; ([phone]). Mother stated that she fully supports him financially and cares for him. SW gave mother alcohol abuse resources and mother was accepting. DC PLAN: Mother stated that he lives at home located at [address], [place] [address]; ([phone]). Mother stated that she fully supports him financially and cares for him. Substance Abuse resources provided included: [facility] Substance Abuse Self-Helpline ([facility]) ; [facility] [address] [facility], [facility]. [place] [id number] ; [facility] [address] [facility] [address] ; [facility] [address] [facility] [address] ; [facility] [address] [address] [facility] [id number] ; [facility] [address] [facility] [address] ; [facility] [address] [facility] [address] ; [facility] Substance Abuse Helpline([facility])-[facility] ; [facility] ; [facility]; [facility]; [facility] [place]; [facility] [place]; [facility] [place]; [facility] [place]; [facility] [place]; [facility], [facility]. Mary Barbosa; Alcoholics Anonymous [facility]; Tin ; Marijuana Anonymous [facility]; Narcotics Anonymous www.na.org;
--- NOTE | 2022-11-01 16:55 | NUR ---
RN NOTE COLLECTED PATIENTS HOME MEDS FROM PHARMACY AND HANDED IT TO THE PATIENTS MOTHER ALESHA. Addendum: 11/01/22 at 1706 by ROCK ROBERT MEMBRENO RN Correction: Pt's mother's name is Sandra toribio Becerra
[2022-11-01] MEDS: IV NS 0.9% 1,000 ML IV PRN (18:02)
--- NOTE | 2022-11-01 18:37 | NUR ---
BUILDING REPAIR MAINTENANCE SUPERVISOR CLOSING NOTES PATIENT LYING IN BED, SLEEPING, AROUSABLE TO VERBAL STIMULI, PATIENT IS A/OX2-3, ABLE TO MAKE HIS NEEDS KNOWN, APPEARS TO BE COMFORTABLE, DENIES ANY PAIN OR DISCOMFORT, PATIENT IS ON RA, BREATHING EVEN AND UNLABORED, NO DISTRESS OR SOB NOTED, IV ACCESS ON RAC #20, INTACT WITH NS AT 75 ML/HR, NO INFILTRATION NOTED, PATIENT WITH EXTERNAL SAFETY PIN ASSEMBLING MACHINE OPERATOR WITH CURRENT READING OF SR AT THIS TIME WITH A HEART RATE OF 68 BPM, NO CARDIAC DISTRESS NOTED, PATIENT HAS A FC, INTACT WITH NOTED CLEAR YELLOW URINE AND DRAINED 1650ML, FALL AND SAFETY IN PLACE AND MAINTAINED AT ALL TIMES, BED ALARM ON, BED IN LOW AND LOCK POSITION, CALL LIGHT AND TABLE WITHIN EASY REACH, SIDE RAILS UP X2, SCHEDULED MEDICATIONS ADMINISTERED, ALL NEEDS ATTENDED AND ANTICIPATED, WILL ENDORSE POC TO POLE SHAVER HELPER NURSE.
--- NOTE | 2022-11-01 19:10 | NUR ---
RN opening notes Received Pt from morning nurse. Pt is resting in bed comfortably and arousable with verbal stimuli. On room air. No SOB. No S/S of distress noted. Tele monitor showed SB/SR hr at 62. RAC# 20 is clean, intact and infusing well NS@ 75 ml/hr. KRISTIAN midline is clean, intact. mathis cath is inplaced and draining yellow urine. safety precautions is maintained. Bed at low position, brakes locked, side rails upX2, hob elevated, bed alarm is on and call light is within reach. will continue to monitor.
[2022-11-02] VITALS: BP 101/59
[2022-11-02 04:00] VITALS: BP 100/49
[2022-11-02] MEDS: CEFEPIME 2 GM in IV D5W 100 ML IV SCH ×2 (04:01→12:15)
[2022-11-02 05:00] VITALS: BP 100/49
[2022-11-02] MEDS: BLOOD SUGAR DIAGNOSTIC 1 EACH STRIP VI SCH ×2 (05:03→12:09)
[2022-11-02] MEDS: INSULIN REGULAR, HUMAN 100 UNIT/ML 3 ML VIAL SQ PRN ×2 (05:04→12:10)
--- NOTE | 2022-11-02 06:30 | NUR ---
RN closing notes Pt is resting in bed comfortably. Pt is alert and orientedX4. On room air. No SOB. No S/S of distress noted. Vs is stable. Tele monitor showed SR hr at 74. RAC# 20 is clean, intact and infusing well NS@ 75 ml/hr. KRISTIAN midline is clean, intact. mathis cath is inplaced and draining yellow urine 950ml. Routine meds were given as ordered. Kept Pt clean, dry and comfortable. all needs met and attended. safety precautions is maintained. Bed at low position, brakes locked, side rails upX2, hob elevated, bed alarm is on and call light is within reach. Will endorse to am nurse for juliane.
--- NOTE | 2022-11-02 07:50 | NUR ---
SORTING MACHINE ATTENDANT OPENING NOTE (DAY SHIFT) RECEIVED PATIENT LYING IN BED, SLEEPING, EASILY AROUSED TO VERBAL STIMULI, PATIENT IS A/O X 2-3, ABLE TO MAKE HIS NEEDS KNOWN, APPEARS TO BE COMFORTABLE, DENIES ANY PAIN OR DISCOMFORT, PATIENT IS ON RA, BREATHING EVEN AND UNLABORED, NO DISTRESS OR SOB NOTED, IV ACCESS ON RAC #20, INTACT WITH D5NS AT 70 ML/HR, NO INFILTRATION NOTED, PATIENT WITH EXTERNAL BISTRO SERVER WITH CURRENT READING OF SR AT 84 BPM AT THIS TIME, NO CARDIAC DISTRESS NOTED, PATIENT HAS A FC, INTACT WITH NOTED CLEAR YELLOW URINE DRAINING, FALL AND SAFETY IN PLACE, BED ALARM ON, BED IN LOW AND LOCK POSITION, CALL LIGHT AND TABLE WITHIN EASY REACH, SIDE RAILS UP X2, WILL CONTINUE TO MONITOR.
[2022-11-02 09:17] VITALS: BP 109/54
[2022-11-02] MEDS: IV NS 0.9% 1,000 ML IV PRN (09:42)
--- NOTE | 2022-11-02 10:29 | NUR ---
MS RN UPDATE NOTE (TELEMETRY D/C' ED) Patient transferred to med/surg and monitor car operator discontinued.
[2022-11-02] MEDS: LEVETIRACETAM (250 MG) 250 MG TABLET PO SCH (10:40)
[2022-11-02 13:24] VITALS: BP 101/66
--- NOTE | 2022-11-02 14:55 | NUR ---
MS SUPERVISOR WIRE ROPE FABRICATION NOTE (DAY SHIFT) Patient tolerated well the removal of both the midline PIV in his left upper arm and the PIV catheter in his right antecubital space without any signs of IV therapy complications and both catheters out fully intact. Patient's mother Sandra verbalized understanding of patient's discharge instructions to SNF and phone verbal report given to nurse IMELDA Wilkes at the [facility]. turbo electric operator given report and printed out discharge transfer instructions for the SNF nursing staff. Patient departed the SO at 14:50 hours via gurney to ambulance bound for [facility] in [place].
== END 2022-11-02 14:55 | DRG 438 ==
LOC: ER 13:11 → ICU 15:36 → TELE 10-30 15:54 → UNDODISIN 11-01 14:45
PROVIDERS: ADMIT Internal Medicine; ATTEND Internal Medicine
PROC: 5A1945Z Respiratory Ventilation, 24-96 Consecutive Hours (ICD-10-PCS; principal; 2022-10-25)
PROC: 0BH17EZ Insertion of Endotracheal Airway into Trachea, Via Natural or Artificial Opening (ICD-10-PCS; 2022-10-25)
PROC: 05HC33Z Insertion of Infusion Device into Left Basilic Vein, Percutaneous Approach (ICD-10-PCS; 2022-10-25)
PROC: 0BH17EZ Insertion of Endotracheal Airway into Trachea, Via Natural or Artificial Opening (ICD-10-PCS; 2022-10-26)
DX: K86.0 Alcohol-induced chronic pancreatitis (principal); E08.6 Diabetes mellitus due to underlying condition with other specified complications; G92.8 Other toxic encephalopathy; J96.01 Acute respiratory failure with hypoxia; J98.11 Atelectasis; G40.501 Epileptic seizures related to external causes, not intractable, with status epilepticus; E87.1 Hypo-osmolality and hyponatremia; E87.20 Acidosis, unspecified; F10.229 Alcohol dependence with intoxication, unspecified; Y90.7 Blood alcohol level of 200-239 mg/100 ml; Z96.41 Presence of insulin pump (external) (internal); Z79.4 Long term (current) use of insulin; R91.8 Other nonspecific abnormal finding of lung field; K70.10 Alcoholic hepatitis without ascites; E78.5 Hyperlipidemia, unspecified; E87.6 Hypokalemia; D69.6 Thrombocytopenia, unspecified; R94.31 Abnormal electrocardiogram [ECG] [EKG]; R00.0 Tachycardia, unspecified; Y92.039 Unspecified place in apartment as the place of occurrence of the external cause
CPT/HCPCS: 31720; 36410; 36415; 36600; 70450-TC; 71045-TC; 80048-TC; 80076-TC; 80202-TC; 81001; 82140-TC; 82550-TC; 82803-TC; 82962-TC; 83605-TC; 83735-TC; 84100-TC; 84443-TC; 84484-TC; 85025-TC; 85730-TC; 87040-TC; 87081-TC; 92526; 92611-TC; 94002-TC; 94003-TC; 94799-TC; 97110-TC; 97116-TC; 97530-TC; A4223; A9563; C9803; G0378; G0480; J0153; J0330; J0692; J1650; J1815; J1953; J2060; J3370; J3475; J3480; J3490; J7030; J7042; J7050; J7060